=== PATIENT | female | born 1960 | race Caucasian/White ===

== ENCOUNTER 2017-02-25 19:32 | Inpatient (IN) | payer OTHER ==
[~2017-02-25] VITALS: Ht 165.1 cm; Wt 72.6 kg
[~2017-02-25 19:32] MED LIST: CARBAMAZEPINE300 M1 PO; CIPRO250 M1 PO; CITRACAL + D 311 TAB PO; FLAGYL500 MG PO; KEFLEX500 M1 PO; LEVETIRACETAM500 M2 PO; LEVSIN0.125 M1 PO; PHENOBARBITAL64.8 M1 PO; VITAMIN C500 M6 PO; ZOCOR40 M1 PO; ZOFRAN ODT4 M1 SL
[2017-02-25] MEDS ORDERED: LINZESS145 MC1 PO (20:40)
[2017-02-25] MEDS ORDERED: CITRACAL + D M1 EACH PO (20:41)
--- NOTE | 2017-02-25 21:01 | ED GI/GU/ABDOMINAL COMPLAINT ---
See Addendum History of Present Illness General Chief Complaint: Abdominal Pain/Flank Pain Stated Complaint: "N+V-D", ABD PAIN" Source: patient, family, old records Exam Limitations: no limitations Vital Signs & Intake/Output Vital Signs & Intake/Output Vital Signs Date Time Temp Pulse Resp B/P B/P Pulse O2 O2 Flow FiO2 Mean Ox Delivery Rate 02/25 2343 97.2 78 20 132/60 95 Room Air 02/25 1949 97.7 102 20 108/75 98 ED Intake and Output 02/26 0000 02/25 1200 Intake Total 2000 Output Total Balance 1999 Intake, IV 2000 Intake, Oral 0 Patient 161 lb Weight Allergies Coded Allergies: fexofenadine (Intermediate, PT FEELS NAUSEA, LOSES BALANCE, FEELS OUT OF MIND ) Reconcile Medications Calcium Citrate/Vitamin D3 (Citracal + D Maximum Caplet) (Unknown Strength) TABLET (Unknown Dose) PO DAILY SUPPLEMENT (Reported) Carbamazepine 300 MG CPMP.12HR 1 CAP PO BID SEIZURES (Reported) Ciprofloxacin HCl (Cipro) 250 MG TABLET 1 TAB PO BID ENTERITIS Hyoscyamine (Levsin) 0.125 MG TABLET 1 TAB PO Q4 PRN ABDOMINAL PAIN Levetiracetam 500 MG TABLET 2 TAB PO BID SEIZURES (Reported) Linaclotide (Linzess) 145 MCG CAPSULE 1 CAP PO DAILY GI (Reported) Metronidazole (Flagyl) 500 MG TABLET 1 TAB PO BID ENTERITIS Ondansetron (Zofran Odt) 4 MG TAB.RAPDIS 1 TAB SL TID PRN NAUSEA Phenobarbital 64.8 MG TABLET 1 TAB PO BID EPILEPSY (Reported) Simvastatin (Zocor*) 40 MG TABLET 1 TAB PO QPM CHOLESTEROL (Reported) Triage Note: "YOU WANT TO KNOW WHATS WRONG LOOK AT HER ;LAST VISIT" ENCOURAGED TO STATE REASON FOR VISIT. PT REPORTS FINISHED ANTIBIOTICS FOR COLITIS AND STARTED VOMITING AGAIN TODAY TOOK A LEVSIN AT 1530 WITHOUT EFFECT, ALREADY SAW DR ARAUJO AND HAD CT, JUST FIX ME" Triage Nurses Notes Reviewed? yes ? N Is pt currently ? No Onset: Afternoon Duration: day(s): (2-3) Timing: multiple episodes today Location: generalized abdomen Activities at Onset: FINISHED COURSE OF ABX Associated Symptoms: abdominal pain, nausea/vomiting HPI: This is a 57-year-old female presents to ER with her for chief complaint of abdominal pain, nausea and vomiting worse over the last 2 days. Patient was seen here on the and diagnosed with a segment of colitis. She was put on Cipro and Flagyl and was told to follow up with GI. She states that she had [address] Barroso but ended up seeing the nurse practitioner. The scheduled her for a colonoscopy on general return if 4. Patient states that after completion of the antibiotic she is felt worse in the past 24 days. Patient states that she is having diarrhea up to 3-4 episodes per day. She does feel bloated and distended. She is unable to keep any food down today. Past History Travel History Traveled to [place] past 21 day No Medical History Any Pertinent Medical History? 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 No Review of Systems Review of Systems Constitutional: Reports: malaise, weakness. Denies: chills, fever. EENTM: Reports: no symptoms. Respiratory: Denies: cough, short of breath. Cardiovascular: Denies: chest pain, palpitations. GI: Reports: abdominal pain, bloating, diarrhea, nausea, vomiting. Genitourinary: Reports: see HPI (DARK URINE). Denies: discharge, dysuria. Musculoskeletal: Reports: no symptoms. Skin: Reports: no symptoms. Neurological/Psychological: Reports: no symptoms. Hematologic/Endocrine: Denies: bruising, bleeding, polyuria, polydipsia. Immunologic/Allergic: Denies: splenectomy. All Other Systems: Reviewed and Negative Physical Exam Physical Exam General Appearance: well developed/nourished, alert, awake, mild distress Head: atraumatic, normal appearance Eyes: Bilateral: normal appearance, PERRL, EOMI. Ears, Nose, Throat, Mouth: hearing grossly normal, DRY MUCUS MEMBRANES Neck: normal inspection, supple, full range of motion Respiratory: normal breath sounds, chest non-tender, no respiratory distress Cardiovascular: regular rate/rhythm, normal peripheral pulses Peripheral Pulses: 2+ radial (R), 2+ radial (L) Gastrointestinal: normal bowel sounds, soft, tenderness (MILD LLQ), NO REBOUND/ GUARDING Extremities: normal range of motion Neurologic/Psych: no motor/sensory deficits, awake, alert, oriented x 3 Skin: intact, normal color, warm/dry Core Measures ACS in differential dx? No Sepsis Present: No Sepsis Focused Exam Completed? No Progress Differential Diagnosis: COLITIS, IBD, C.DIFF, DEHYDRATION, JIGNA Plan of Care: Orders Procedure Date/time Status Nothing by Mouth 02/26 B Active ED Holding Orders 02/26 39 Active Admit to inpatient 02/26 39 Active Vital Signs 02/26 39 Active Code Status 02/26 39 Active NGT 02/25 2347 Active EKG 02/25 2347 Active Add-on Test (ER Only) 02/25 2111 Active Add-on Test (ER Only) 02/25 2110 Active CULTURE,STOOL 02/25 2106 Active OVA AND PARASITE ANTIGENS 02/25 2106 Active C.DIFFICILE 02/25 2106 Active Add-on Test (ER Only) 02/25 2105 Active TEGRETOL LEVEL 02/25 2050 Complete PARTIAL THROMBOPLASTIN TIME 02/25 2050 Complete PROTHROMBIN TIME 02/25 2050 Complete LIPASE 02/25 2050 Complete C-REACTIVE PROTEIN 02/25 2050 Complete URINALYSIS 02/25 1950 Active COMPREHENSIVE METABOLIC PANEL 02/25 1950 Complete CBC WITHOUT DIFFERENTIAL 02/25 1950 Complete Current Medications Sig/Danny Start time Last Medication Dose Stop Time Status Admin Promethazine HCl 12.5 MG ONCE ONE 02/26 0045 UNVr (Phenergen) 02/26 0046 Laboratory Tests 02/26/17 0005: Urine Color Pending, Urine Clarity Pending, Urine pH Pending, Ur Specific [place] Pending, Urine Protein Pending, Urine Ketones Pending, Urine Nitrite Pending, Urine Bilirubin Pending, Urine Urobilinogen Pending, Ur Leukocyte Esterase Pending, Ur Microscopic Pending, Urine Hemoglobin Pending, Urine Glucose Pending 02/25/172049: Anion Gap 11, Estimated GFR > 60, BUN/Creatinine Ratio 30.0 H, Glucose 114 H, Calcium 9.3, Total Bilirubin 0.3, AST 21, ALT 32, Alkaline Phosphatase 84, C- Reactive Prot, Quant 1.6 H, Total Protein 6.9, Albumin 4.0, Globulin 2.9, Albumin/Globulin Ratio 1.4, Lipase 66, PT 11.1, INR 1.06, APTT 30, CBC w Diff NO MAN DIFF REQ, RBC 4.79, MCV 79.1 L, MCH 25.3 L, RDW 15.7 H, MPV 7.7, Gran % 78.6 H, Lymphocytes % 17.1 L, Monocytes % 3.6, Eosinophils % 0.4, Basophils % 0.3, Absolute Granulocytes 7.4 H, Absolute Lymphocytes 1.6, Absolute Monocytes 0.3, Absolute Eosinophils 0, Absolute Basophils 0, PUBS MCHC 32.0 L, Carbamazepine 3.5 L Microbiology 02/25 2106 STOOL: Cryptosporidium Antigen - ORD 02/25 2106 STOOL: Giardia Antigen (PATIENCE) - ORD 02/25 2106 STOOL: Clostridium difficile Toxin A & B - ORD 02/25 2106 STOOL: Stool Culture - ORD LABS, IV HYDRATION ORDERED. C.DIFF ORDERED. 10:21 PM PATIENT SLEEPING, RESTING COMFORTABLY. 2ND LITER INFUSING. 11:08 PM PATIENT VOMITING CLEAR WATER WITH CHUNKS OF FOOD. IV ZOFRAN, CT ABDOMNE ORDERED. 11:[address] SHOWS HIGH GRADE SBO, SURGERY PAGED. NGT ORDERED. 11:57 PM D/W DR GRIFFITHS. SURGICAL PA PAGED. 12:41 AM NG tube in place. Patient evaluated by surgical PA, admitted to the floor. Phenergan ordered. Diagnostic Imaging: Viewed by Me: CT Scan. Discussed w/RAD: CT Scan. Radiology Impression: PATIENT: RHODA MUNIZ PRESENT AGE: 57 PATIENT ACCOUNT NO: [id number] : 56 LOCATION: [facility] ORDERING PHYSICIAN: Ignacia Denton MD SERVICE DATE: 02/25/17 EXAM TYPE: CAT - CT ABD & PELVIS W IV CONTRAST EXAMINATION: CT ABDOMEN AND PELVIS WITH CONTRAST CLINICAL INFORMATION: Multiple episodes of vomiting. Abdominal pain. COMPARISON: CT scan pelvis 02/14/2017, 11/08/2016 TECHNIQUE: Multidetector volumetric imaging was performed of the abdomen and pelvis following IV administration of 95 mL of Optiray 320 intravenous contrast. Sagittal and coronal reformatted images were obtained on the technologist's workstation. DLP: 317.67 mGy-cm FINDINGS: LUNG BASES: The visualized lung bases are unremarkable. LIVER, GALLBLADDER, AND BILIARY TREE: The liver is normal in size, shape, and attenuation. No focal hepatic lesion or biliary ductal dilatation is present. Status post cholecystectomy. PANCREAS: Unremarkable. SPLEEN: Unremarkable. ADRENAL GLANDS: Unremarkable. KIDNEYS AND URETERS: The kidneys are normal in size, shape, and attenuation. No hydronephrosis, hydroureter, or calculi seen. No perinephric stranding. BLADDER: Unremarkable. GASTROINTESTINAL TRACT: There is a small bowel obstruction. Dilated small bowel loops with air-fluid levels to the terminal ileum. Transition point is at the terminal ileum/ileocecal valve. Coronal image 36. There is fluid in the colon but the colon is nondistended. No bowel wall thickening. No air in the bowel wall. At the ileocecal valve there is a lobular soft tissue density, axial image 58 (2). A mass at the ileocecal valve could be considered. No mesenteric mass. The appendix is not identified. MESENTERY: Small amount of free fluid in the abdomen but no free air or inflammation. The fluid could be due to the bowel obstruction. ABDOMINAL WALL: No significant hernia is appreciated. LYMPH NODES: Normal. VASCULAR: Unremarkable. PELVIC VISCERA: Unremarkable. OSSEOUS STRUCTURES: Unremarkable. IMPRESSION: High-grade small bowel obstruction with transition at the terminal ileum/ileocecal valve. This critical result was discussed with Dr. Denton on , 11:50 PM and it was ascertained that the content and urgency of the report was understood at the time of direct communication. DICTATED BY: Merrill Harper MD DATE/TIME DICTATED:02/25/172337 NIGHT SHIFT SUPERVISOR:SIMBA DATE/TIME TRANSCRIBED:02/25/172337 CONFIDENTIAL, DO NOT COPY WITHOUT APPROPRIATE AUTHORIZATION. <Electronically signed in Other Vendor System> SIGNED BY: Merrill Harper MD 02/25/17 6658 Initial ED EKG: none Departure Departure Time of Disposition: 12 Disposition: STILL A PATIENT Condition: Stable Clinical Impression Primary Impression: SBO (small bowel obstruction) Referrals: Stewart Chambers MD (PCP/Family) Departure Forms: Customer Survey General Discharge Information Admission Note Spoke With: Luis MAI,Samuel Mckeon Documentation of Exam: Documentation of any treatments & extenuating circumstances including Concerns Regarding Discharge (functional status, medication knowledge or non-compliance, living conditions, etc.) that warrant an admission rather than observation: [NGT , IV FLUIDS, MONITOR I/O, SERIAL ABDOMINAL EXAMINATIONS, GI CONSULTATION]
[2017-02-25 21:05] LABS: ABSOLUTE BASOPHIL COUNT 0 /CUMM (0.0-0.2); ABSOLUTE EOSINOPHIL COUNT 0 /CUMM (0.0-0.7); ABSOLUTE GRANULOCYTE CT 7.4 /CUMM (1.4-6.5); ABSOLUTE LYMPH COUNT 1.6 /CUMM (1.2-3.4); ABSOLUTE MONOCYTE COUNT 0.3 /CUMM (0.10-0.60); BASOPHIL % 0.3 % (0.0-2.0); EOSINOPHIL % 0.4 % (0-5); GRANULOCYTE % 78.6 % (42.2-75.2); HEMATOCRIT 37.9 % (37-47); MEAN CORPUSCULAR HGB 25.3 PG (27.0-31.0); MEAN CORPUSCULAR VOLUME 79.1 FL (81.0-99.0); MEAN PLATELET VOLUME 7.7 FL (7.4-10.4); PLATELET COUNT 429 /CUMM (130-400); RBC DISTRIBUTION WIDTH 15.7 % (11.5-14.5); RED BLOOD CELL CT 4.79 /CUMM (4.20-5.40); WHITE BLOOD CELL COUNT 9.5 /CUMM (4.8-10.8)
[2017-02-25 21:25] LABS: PT 11.1 SEC (9.4-12.5); PTT 30 SEC (25-37)
--- NOTE | 2017-02-25 23:52 | CT SCAN REPORT ---
EXAMINATION: CT ABDOMEN AND PELVIS WITH CONTRAST CLINICAL INFORMATION: Multiple episodes of vomiting. Abdominal pain. COMPARISON: CT scan pelvis 02/14/2017, 11/08/2016 TECHNIQUE: Multidetector volumetric imaging was performed of the abdomen and pelvis following IV administration of 95 mL of Optiray 320 intravenous contrast. Sagittal and coronal reformatted images were obtained on the technologist's workstation. DLP: 317.67 mGy-cm FINDINGS: LUNG BASES: The visualized lung bases are unremarkable. LIVER, GALLBLADDER, AND BILIARY TREE: The liver is normal in size, shape, and attenuation. No focal hepatic lesion or biliary ductal dilatation is present. Status post cholecystectomy. PANCREAS: Unremarkable. SPLEEN: Unremarkable. ADRENAL GLANDS: Unremarkable. KIDNEYS AND URETERS: The kidneys are normal in size, shape, and attenuation. No hydronephrosis, hydroureter, or calculi seen. No perinephric stranding. BLADDER: Unremarkable. GASTROINTESTINAL TRACT: There is a small bowel obstruction. Dilated small bowel loops with air-fluid levels to the terminal ileum. Transition point is at the terminal ileum/ileocecal valve. Coronal image 36. There is fluid in the colon but the colon is nondistended. No bowel wall thickening. No air in the bowel wall. At the ileocecal valve there is a lobular soft tissue density, axial image 58 (2). A mass at the ileocecal valve could be considered. No mesenteric mass. The appendix is not identified. MESENTERY: Small amount of free fluid in the abdomen but no free air or inflammation. The fluid could be due to the bowel obstruction. ABDOMINAL WALL: No significant hernia is appreciated. LYMPH NODES: Normal. VASCULAR: Unremarkable. PELVIC VISCERA: Unremarkable. OSSEOUS STRUCTURES: Unremarkable. IMPRESSION: High-grade small bowel obstruction with transition at the terminal ileum/ileocecal valve. This critical result was discussed with Dr. Denton on 02/25/2017, 11:50 PM and it was ascertained that the content and urgency of the report was understood at the time of direct communication.
--- NOTE | 2017-02-26 01:15 | Admission Core Measures ---
Acute Coronary Syndrome (CM) ACS Core Measures Acute Coronary Syndrome Diagnosis No Congestive Heart Failure (NEW) CHF Core Measures Congestive Heart Failure Diagnosis No Cerebrovascular Accident (NEW) CVA Core Measures CVA/TIA Diagnosis No Venous Thromboembolism VTE Core Martine (View Protocol) VTE Risk Factors Age>40 No Mechanical VTE Prophylaxis d/t N/A MechProphylax Ordered No VTE Pharm Prophylaxis d/t NA PharmProphylax ordered Problem List As ranked by this Provider includes Assessment & Plan 1. SBO (small bowel obstruction) 2. Epilepsy 3. History of section 4. S/P laparoscopic cholecystectomy 5. Hyperlipidemia HOME MEDS Home Med List Calcium Citrate/Vitamin D3 (Citracal + D Maximum Caplet) (Unknown Strength) TABLET (Unknown Dose) PO DAILY SUPPLEMENT (Reported) Carbamazepine 300 MG CPMP.12HR 1 CAP PO BID SEIZURES (Reported) Ciprofloxacin HCl (Cipro) 250 MG TABLET 1 TAB PO BID ENTERITIS Hyoscyamine (Levsin) 0.125 MG TABLET 1 TAB PO Q4 PRN ABDOMINAL PAIN Levetiracetam 500 MG TABLET 2 TAB PO BID SEIZURES (Reported) Linaclotide (Linzess) 145 MCG CAPSULE 1 CAP PO DAILY GI (Reported) Metronidazole (Flagyl) 500 MG TABLET 1 TAB PO BID ENTERITIS Ondansetron (Zofran Odt) 4 MG TAB.RAPDIS 1 TAB SL TID PRN NAUSEA Phenobarbital 64.8 MG TABLET 1 TAB PO BID EPILEPSY (Reported) Simvastatin (Zocor*) 40 MG TABLET 1 TAB PO QPM CHOLESTEROL (Reported)
--- NOTE | 2017-02-26 01:30 | History & Physical Pre-Op ---
Kusum BOWLINGGinger 02/26/17 0115: General Information and HPI MD Statement: I have seen and personally examined RHODA MUNIZ and documented this H&P. The patient is a 57 year old F who presented with a patient stated chief complaint of [ABDOMINAL PAIN]. Source of Information: patient, old records Exam Limitations: no limitations History of Present Illness: This 57 year old female with history of epilepsy, hyperlipidemia, hx lap marie for biliary colic, and , presents with intermittent obstructive symptoms since . She has had abdominal pain, bloating, and nausea/ vomiting at times. She was seen in the ED on 02/14/17, and sent home with 10 days of cipro/flagyl for "enteritis", but her symptoms have returned since completing this course of antibiotics just over a days ago. She currently reports generalized abdominal pain, with nausea and vomiting. She has also had 4 bms today. She reports a history of constipation-related IBS, but hasn't been taking Linzess because she has been having these obstructive symptoms, with episodes of diarrhea. She was planning an outpatient colonscopy for March 21 reportedly. She's on multiple seizure medications, but has't had a seizure since 1985. She was just recently started on keppra, to assist in weaning her off carbamazepine. An ng tube was placed in the ED, and with some irrigation, about 500 mls of nonbilious fluid is seen in the cannister, however she does not feel much better yet. Allergies/Medications Allergies: Coded Allergies: fexofenadine (Intermediate, PT FEELS NAUSEA, LOSES BALANCE, FEELS OUT OF MIND ) Home Med list Calcium Citrate/Vitamin D3 (Citracal + D Maximum Caplet) (Unknown Strength) TABLET (Unknown Dose) PO DAILY SUPPLEMENT (Reported) Carbamazepine 300 MG CPMP.12HR 1 CAP PO BID SEIZURES (Reported) Ciprofloxacin HCl (Cipro) 250 MG TABLET 1 TAB PO BID ENTERITIS Hyoscyamine (Levsin) 0.125 MG TABLET 1 TAB PO Q4 PRN ABDOMINAL PAIN Levetiracetam 500 MG TABLET 2 TAB PO BID SEIZURES (Reported) Linaclotide (Linzess) 145 MCG CAPSULE 1 CAP PO DAILY GI (Reported) Metronidazole (Flagyl) 500 MG TABLET 1 TAB PO BID ENTERITIS Ondansetron (Zofran Odt) 4 MG TAB.RAPDIS 1 TAB SL TID PRN NAUSEA Phenobarbital 64.8 MG TABLET 1 TAB PO BID EPILEPSY (Reported) Simvastatin (Zocor*) 40 MG TABLET 1 TAB PO QPM CHOLESTEROL (Reported) Past History Medical History Neurological: seizure Cardiovascular: hyperlipidemia Respiratory: NONE Gastrointestinal: constipation, irritable bowel syndrome, recent "enteritis" Hepatic: NONE Renal: NONE Musculoskeletal: NONE Psychiatric: NONE Endocrine: NONE Blood Disorders: NONE Cancer(s): NONE 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 FH: breast cancer Lung cancer Psychosocial History Primary Language: Hungarian Review of Systems Review of Systems: admits: abdominal pain, nausea/vomiting, bloating, leg cramps, weakness denies: fevers/chills/sweats, dizziness, shortness of breath, chest pains Exam & Diagnostic Data Last 24 Hrs of Vital Signs/I&O Vital Signs Date Time Temp Pulse Resp B/P B/P Pulse O2 O2 Flow FiO2 Mean Ox Delivery Rate 02/25 2343 97.2 78 20 132/60 95 Room Air 02/25 1949 97.7 102 20 108/75 98 Intake & Output 02/26 0800 02/26 0000 02/25 1600 Intake Total 2000 Output Total 50 Balance -50 2000 Intake, IV 2000 Intake, Oral 0 Output, 50 Gastric Drainage Patient 161 lb Weight Physical Exam: General - alert & oriented x 3. uncomfortable. no acute distress Skin - warm, dry, and smooth. no rashes noted. Lungs - clear bilaterally. no w/r/r. Cardiac - s1s2. reg. Abdomen - softly distended. generalized tenderness, without evidence of peritonitis. ng tube irrigated, with approximately 500 mls nonbilious fluid in cannister. Extremities - warm bilaterally. no c/c/e. calves soft and nontender b/l. Neuro - no focal deficits. no motor or sensory deficits. Last 24 Hrs of Labs/Uriel: Laboratory Tests 02/26/17 0005: Urine Color YEL, Urine Clarity CLEAR, Urine pH 6.0, Ur Specific [place] 1.015, Urine Protein NEG, Urine Ketones TRACE H, Urine Nitrite NEG, Urine Bilirubin NEG, Urine Urobilinogen 0.2, Ur Leukocyte Esterase NEG, Ur Microscopic SEDIMENT EXAMINED, Urine RBC 1-3, Urine WBC RARE, Ur Epithelial Cells RARE, Urine Mucus MANY H, Urine Hemoglobin TRACE-INTACT, Urine Glucose NEG 02/25/172049: Anion Gap 11, Estimated GFR > 60, BUN/Creatinine Ratio 30.0 H, Glucose 114 H, Calcium 9.3, Total Bilirubin 0.3, AST 21, ALT 32, Alkaline Phosphatase 84, C- Reactive Prot, Quant 1.6 H, Total Protein 6.9, Albumin 4.0, Globulin 2.9, Albumin/Globulin Ratio 1.4, Lipase 66, PT 11.1, INR 1.06, APTT 30, CBC w Diff NO MAN DIFF REQ, RBC 4.79, MCV 79.1 L, MCH 25.3 L, RDW 15.7 H, MPV 7.7, Gran % 78.6 H, Lymphocytes % 17.1 L, Monocytes % 3.6, Eosinophils % 0.4, Basophils % 0.3, Absolute Granulocytes 7.4 H, Absolute Lymphocytes 1.6, Absolute Monocytes 0.3, Absolute Eosinophils 0, Absolute Basophils 0, PUBS MCHC 32.0 L, Carbamazepine 3.5 L Microbiology 02/25 2106 STOOL: Cryptosporidium Antigen - ORD 02/25 2106 STOOL: Giardia Antigen (URIEL) - ORD 02/25 2106 STOOL: Clostridium difficile Toxin A & B - ORD 02/25 2106 STOOL: Stool Culture - ORD Diagnostic Data Other Results EXAM TYPE: CAT - CT ABD & PELVIS W IV CONTRAST EXAMINATION: CT ABDOMEN AND PELVIS WITH CONTRAST CLINICAL INFORMATION: Multiple episodes of vomiting. Abdominal pain. COMPARISON: CT scan pelvis 02/14/2017, 11/08/2016 TECHNIQUE: Multidetector volumetric imaging was performed of the abdomen and pelvis following IV administration of 95 mL of Optiray 320 intravenous contrast. Sagittal and coronal reformatted images were obtained on the technologist's workstation. DLP: 317.67 mGy-cm FINDINGS: LUNG BASES: The visualized lung bases are unremarkable. LIVER, GALLBLADDER, AND BILIARY TREE: The liver is normal in size, shape, and attenuation. No focal hepatic lesion or biliary ductal dilatation is present. Status post cholecystectomy. PANCREAS: Unremarkable. SPLEEN: Unremarkable. ADRENAL GLANDS: Unremarkable. KIDNEYS AND URETERS: The kidneys are normal in size, shape, and attenuation. No hydronephrosis, hydroureter, or calculi seen. No perinephric stranding. BLADDER: Unremarkable. GASTROINTESTINAL TRACT: There is a small bowel obstruction. Dilated small bowel loops with air-fluid levels to the terminal ileum. Transition point is at the terminal ileum/ileocecal valve. Coronal image 36. There is fluid in the colon but the colon is nondistended. No bowel wall thickening. No air in the bowel wall. At the ileocecal valve there is a lobular soft tissue density, axial image 58 (2). A mass at the ileocecal valve could be considered. No mesenteric mass. The appendix is not identified. MESENTERY: Small amount of free fluid in the abdomen but no free air or inflammation. The fluid could be due to the bowel obstruction. ABDOMINAL WALL: No significant hernia is appreciated. LYMPH NODES: Normal. VASCULAR: Unremarkable. PELVIC VISCERA: Unremarkable. OSSEOUS STRUCTURES: Unremarkable. IMPRESSION: High-grade small bowel obstruction with transition at the terminal ileum/ileocecal valve. This critical result was discussed with Dr. Denton on 02/25/2017, 11:50 PM and it was ascertained that the content and urgency of the report was understood at the time of direct communication. DICTATED BY: Merrill Harper MD DATE/TIME DICTATED:02/25/172337 DOCUMENT COORDINATOR:SIMBA DATE/TIME TRANSCRIBED:02/25/172337 Assessment/Plan Assessment/Plan: This 57 year old female with history of epilepsy, hyperlipidemia, hx IBS / constipation, with intermittent obstructive symptoms for about a month, here with recurrent abdominal pain secondary to high grade sbo npo / ngt / ivf pain medication as needed anti-emetics as needed seizure medications ordered (keppra and phenobarb available IV) serial exams and labs protonix - gi ppx hep sc - dvt ppx will d/w As Ranked By This Provider Problem List: 1. SBO (small bowel obstruction) 2. Epilepsy 3. Hyperlipidemia 4. S/P laparoscopic cholecystectomy 5. History of section Copies To: Reyes MAI,Stewart Smith MD,[facility] 02/26/17 1222: Attending Review Statement Attending Statement Attending Statement: examined this patient, discuss w/resident/PA/HEAD SCHOOL CUSTODIAN, discussed with family, reviewed images Attending Assessment/Plan: This patient is known to me from laparoscopic cholecystectomy last year. She now presents with progressive obstructive symptoms over the past three months, worse in the past few weeks. She was last seen 02/[address] showed ? inflammatory changes to terminal ileum(images viewed). She felt better for a week and now presents with worsened symptoms of abdominal pain, distension and vomiting. CT now shows intestinal obstruction due to inflammation or mass at terminal ileum. Not improved with NGT. Plan willl be to fluid rescucitate and proceed with laparoscopic exploration, possible bowel resection. Patient agreeable. Informed of risks of surgery including bleeding, infection, anastomotic leak requiring ileostomy and conversion to open.
[2017-02-26 02:23] VITALS: BP 136/64
[2017-02-26 06:34] VITALS: BP 130/60
--- NOTE | 2017-02-26 09:13 | PN- General Surgery ---
Subjective Subjective: Patient not feeling much better this morning, NG tube with less than 50 mL output overnight, just flushed again this morning by nursing staff 10 minutes prior to my evaluation. She vomited earlier, just received Zofran. Still in moderate pain. No flatus, no bowel movement Objective Vital Signs and I&Os Vital Signs Date Time Temp Pulse Resp B/P B/P Pulse O2 O2 Flow FiO2 Mean Ox Delivery Rate 02/26 0634 98.5 81 18 130/60 93 02/26 0223 97.8 85 18 136/64 95 02/26 0145 97.1 74 18 149/70 94 Room Air 02/25 2343 97.2 78 20 132/60 95 Room Air 02/25 1949 97.7 102 20 108/75 98 Intake & Output 02/26 1600 02/26 0800 02/26 0000 02/25 1600 02/25 0800 02/25 0000 Intake Total 700 2000 Output Total 450 Balance 250 2000 Intake, IV 700 2000 Intake, Oral 0 0 Number 0 Bowel Movements Output, 50 Gastric Drainage Output, Urine 400 Patient 160 lb 161 lb Weight Weight Standing Scale Measurement Method Physical Exam: Well-developed well-nourished appears uncomfortable, tearful HEENT: Atraumatic, extraocular motion intact NG tube in place, minimal output of bilious material, Neck: Supple, no lymphadenopathy Respiratory: No respiratory distress Abdomen: Moderate distention, soft, mild generalized abdominal tenderness, hypoactive bowel sounds Extremities: No edema, no calf pain Neuro: Alert and oriented x3 Psych: Tearful, normal memory normal judgment. Skin: Warm and dry, no rash on exposed skin Results Last 48 Hours of Labs: Laboratory Tests 02/26 02/26 0742 0005 Miscellaneous Ref Lab Test Result Pending Urines Urine Color (YEL,AMB,STR) YEL Urine Clarity (CLEAR) CLEAR Urine pH (5.0 - 8.0) 6.0 Ur Specific [place] (1.001 - 1.035) 1.015 Urine Protein (NEG,<30 MG/DL) NEG Urine Ketones (NEG) TRACE H Urine Nitrite (NEG) NEG Urine Bilirubin (NEG) NEG Urine Urobilinogen (0.1 - 1.0 EU/dl) 0.2 Ur Leukocyte Esterase (NEG) NEG Ur Microscopic SEDIMENT EXAMINED Urine RBC (0 - 5 /HPF) 1-3 Urine WBC (0 - 2 /HPF) RARE Ur Epithelial Cells (NONE,FEW) RARE Urine Mucus (FEW,NONE) MANY H Urine Hemoglobin (NEG) TRACE-INTACT Urine Glucose (N MG/DL) NEG 02/25 2050 Chemistry Sodium (137 - 145 mmol/L) 142 Potassium (3.5 - 5.1 mmol/L) 4.8 Chloride (98 - 107 mmol/L) 106 Carbon Dioxide (22 - 30 mmol/L) 25 Anion Gap (5 - 16) 11 BUN (7 - 17 mg/dL) 21 H Creatinine (0.5 - 1.0 mg/dL) 0.7 Estimated GFR (>60 ml/min) > 60 BUN/Creatinine Ratio (7 - 25 %) 30.0 H Glucose (65 - 99 mg/dL) 114 H Calcium (8.4 - 10.2 mg/dL) 9.3 Magnesium (1.6 - 2.3 mg/dL) 2.2 Total Bilirubin (0.2 - 1.3 mg/dL) 0.3 AST (14 - 36 U/L) 21 ALT (9 - 52 U/L) 32 Alkaline Phosphatase (<127 U/L) 84 C-Reactive Prot, Quant (<1.0 mg/dL) 1.6 H Total Protein (6.3 - 8.2 g/dL) 6.9 Albumin (3.5 - 5.0 g/dL) 4.0 Globulin (1.9 - 4.2 gm/dL) 2.9 Albumin/Globulin Ratio (1.1 - 2.2 %) 1.4 Lipase (23 - 300 U/L) 66 Coagulation PT (9.4 - 12.5 SEC) 11.1 INR (0.90 - 1.19) 1.06 APTT (25 - 37 SEC) 30 Hematology CBC w Diff NO MAN DIFF REQ WBC (4.8 - 10.8 /CUMM) 9.5 RBC (4.20 - 5.40 /CUMM) 4.79 Hgb (12.0 - 16.0 G/DL) 12.1 Hct (37 - 47 %) 37.9 MCV (81.0 - 99.0 FL) 79.1 L MCH (27.0 - 31.0 PG) 25.3 L RDW (11.5 - 14.5 %) 15.7 H Plt Count (130 - 400 /CUMM) 429 H MPV (7.4 - 10.4 FL) 7.7 Gran % (42.2 - 75.2 %) 78.6 H Lymphocytes % (20.5 - 51.1 %) 17.1 L Monocytes % (1.7 - 9.3 %) 3.6 Eosinophils % (0 - 5 %) 0.4 Basophils % (0.0 - 2.0 %) 0.3 Absolute Granulocytes (1.4 - 6.5 /CUMM) 7.4 H Absolute Lymphocytes (1.2 - 3.4 /CUMM) 1.6 Absolute Monocytes (0.10 - 0.60 /CUMM) 0.3 Absolute Eosinophils (0.0 - 0.7 /CUMM) 0 Absolute Basophils (0.0 - 0.2 /CUMM) 0 PUBS MCHC (33.0 - 37.0 G/DL) 32.0 L Toxicology Carbamazepine (4.0 - 12.0 ug/mL) 3.5 L Assessment/Plan Assessment/Plan Hospital day #1 for admission secondary to high-grade small bowel obstruction IV antiemetics Continue NG tube to suction, monitor output Check abdominal x-ray this morning Follow-up am labs IV fluids Nothing by mouth Seizure movements Will discuss with Dr. Smith Core Measures Venous Thromboembolism VTE Risk Factors Age>40 No Mechanical VTE Prophylaxis d/t N/A MechProphylax Ordered No VTE Pharm Prophylaxis d/t NA PharmProphylax ordered
[2017-02-26 14:15] VITALS: BP 127/82
[2017-02-26 15:07] VITALS: BP 127/82
--- NOTE | 2017-02-26 16:38 | RADIOLOGY REPORT ---
EXAMINATION: XR ABDOMEN MULTIPLE VIEWS CLINICAL INDICATION: Small bowel obstruction COMPARISON: 02/25/2017 CT scan TECHNIQUE: Supine and upright views of the abdomen. FINDINGS: There are air-filled dilated small bowel loops with maximum transverse diameter of 3.5 cm. No abnormal small bowel wall thickening or pneumatosis seen. The loops of colon are not dilated. There is an enteric tube in place, with its tip and sidehole located in the left upper quadrant of the abdomen, in the expected position of the stomach. No free intra-abdominal air. Right upper quadrant surgical heather, represent prior cholecystectomy. There is excreted contrast within the urinary bladder, from prior contrast administration for CT scan. Pelvic phleboliths are present. IMPRESSION: Dilated small bowel loops, correlate with the diagnosis of small bowel obstruction.
--- NOTE | 2017-02-26 18:14 | Operative Report ---
Operative/Inv Procedure Report Surgery Date: 02/26/17 Name of Procedure: 1. Laparoscopic right colectomy 2. Umbilical hernia repair Pre-Operative Diagnosis: 1. Intestinal obstruction 2. Umbilical hernia Post-Operative Diagnosis: Same same Estimated Blood Loss: less than 50ml Surgeon/Welding Machine Operator Resistance: Luis MAI,Samuel Mckeon/Braeden BOWLING Anesthesia: general endotracheal tube Specimens: Right colon Operative Indication: 57-year-old woman with progressive obstructive symptoms. She is found on serial CT scan to have concern for a inflammatory or mass lesion in the terminal ileum. She now presents with complete intestinal obstruction for exploration. Operative/Procedure Note Note: After consent she is brought to the operating room and laid supine. Gen. anesthesia was obtained and her abdomen was prepped and draped. The skin around the umbilicus was after local anesthesia and a curvilinear incision made sharply. There was an umbilical hernia which was circumferentially dissected and the stalk transected with cautery. We thus exposed the fascial defect which was circumferentially dissected with cautery. The fascial edges were incised and contents reduced. Stay sutures were placed and a blunt Montgomery port was placed. Pneumoperitoneum was achieved. A 5 mm port was placed in the suprapubic region, a 3-5 mm ports was placed in the left mid abdomen and a 12 mm ports placed in the epigastric region. The abdomen was explored. There was diffuse dilatation of the small bowel up to the terminal ileum. In the terminal ileum there was an inflammatory masslike lesion kinking the bowel. It involved the cecum as well. I elected to perform right colectomy colectomy. We reflected the omentum and small bowel superiorly and to the left side respectively. There is right colic artery was identified and peritoneum overlying it was incised with cautery, delineating the line of resection from distal ileum to right transverse colon. Circumferentially dissected the right colic artery at its origin with blunt dissection. Retroperitoneal planes were then developed. Once we had identified this pedicle it was ligated with the LigaSure device. We then created a retroperitoneal planes up to the hepatic flexure and cecum. I divided the small bowel mesentery with LigaSure device and then transected the ileum with Endo OWEN 60 stapler. We then mobilized the right colon along the white line of [place] with cautery and took down the hepatic flexure with the LigaSure device. Divided the mesentery up to the site of transection of the transverse colon. At this point minilaparotomy was created through the epigastric port site. The Aneesh wound retractor was placed. Bowel was brought up through the wound and transverse colon divided with a OWEN 80 stapler. The specimen was passed off the field. [id number] anastomosis was then created by lining up the ileum to the right colon was sutures and then creating a [id number]-[id number] anastomosis with the OWEN stapler. The common enterotomy was closed with a reload. The anastomosis was dropped back in the perineal cavity and the Aneesh retractor removed. The fascia was closed with 0 Maxon suture. Regained pneumoperitoneum and inspected the anastomosis. Unfortunately there was a twist in the small bowel. I elected to redo the anastomosis. The fascia was opened up and bowel brought up through it. Anastomosis was resected with staplers and passed off the field. We then re-lined up the bowel in its proper position and created another [id number]-wc-[id number] anastomosis in a similar fashion. Was then dropped back in fascia closed and pneumoperitoneum achieved. This time the anastomosis can correct position. Hemostasis was adequate. We then removed. The umbilical hernia site was closed with running 0 Vicryl suture. Skin incisions closed with heather. Sterile dressings were applied. Sponge and needle counts are correct Findings: Obstructing mass at the ileocecal valve CC: Dharmesh MAI,Félix Kern; Reyes MAI,Stewart
[2017-02-26 20:00] VITALS: BP 130/80
--- NOTE | 2017-02-26 21:15 | PN- General Surgery ---
Subjective Subjective: Postop check: Patient awake and alert, she is tired but otherwise feeling well, pain is controlled, no nausea no vomiting Objective Vital Signs and I&Os Vital Signs Date Time Temp Pulse Resp B/P B/P Pulse O2 O2 Flow FiO2 Mean Ox Delivery Rate 02/27 2000 Nasal 3.0L Cannula 02/27 2000 99.5 63 18 130/80 95 Nasal 3.0L Cannula 02/26 1507 97.9 81 18 127/82 95 02/26 1415 97.9 81 18 127/82 95 Room Air Room Air 02/26 0634 98.5 81 18 130/60 93 02/26 0223 97.8 85 18 136/64 95 02/26 0145 97.1 74 18 149/70 94 Room Air 02/25 2343 97.2 78 20 132/60 95 Room Air Intake & Output 02/26 1600 02/26 0800 02/26 0000 02/25 1600 02/25 0800 02/25 0000 Intake Total 084 350 6864 Output Total 800 450 Balance 30 250 2000 Intake, IV 104 222 2111 Intake, Oral 30 0 0 Number 0 Bowel Movements Output, 350 50 Gastric Drainage Output, Urine 450 400 Patient 160 lb 161 lb Weight Weight Standing Scale Measurement Method Physical Exam: Well-developed well-nourished no apparent distress. Mildly pale appearing HEENT: Atraumatic, extraocular motion intact NG tube remains in place, Neck: Supple, no lymphadenopathy Respiratory: No respiratory distress Abdomen: Appropriate tenderness midline and right lower quadrant. Dressings clean dry and intact Extremities: No edema, no calf pain Neuro: Alert and oriented x3 Psych: Mood affect normal, normal memory normal judgment. Skin: Warm and dry, no rash on exposed skin Assessment/Plan Assessment/Plan Postop day #0 status post laparoscopic right hemicolectomy and umbilical hernia repair Nothing by mouth, NG tube, IV fluids (except for phenobarbitol liquid po) Follow a.m. labs. Pain medication as needed. Is and Os Heparin subcutaneous for DVT prophylaxis IV protonix follow path report home meds/anti seizure meds Out of bed tomorrow Monitor for return of bowel function Core Measures Venous Thromboembolism VTE Risk Factors Age>40 No Mechanical VTE Prophylaxis d/t N/A MechProphylax Ordered No VTE Pharm Prophylaxis d/t NA PharmProphylax ordered
[2017-02-26 22:10] VITALS: BP 126/64
[2017-02-26 22:44] LABS: ABSOLUTE BASOPHIL COUNT 0 /CUMM (0.0-0.2); ABSOLUTE EOSINOPHIL COUNT 0 /CUMM (0.0-0.7); ABSOLUTE GRANULOCYTE CT 12.7 /CUMM (1.4-6.5); ABSOLUTE LYMPH COUNT 0.7 /CUMM (1.2-3.4); ABSOLUTE MONOCYTE COUNT 0.3 /CUMM (0.10-0.60); BASOPHIL % 0.1 % (0.0-2.0); EOSINOPHIL % 0 % (0-5); MEAN CORPUSCULAR HGB 25.1 PG (27.0-31.0); MEAN CORPUSCULAR HGB CONC 31.7 G/DL (33.0-37.0); MEAN CORPUSCULAR VOLUME 79.3 FL (81.0-99.0); MEAN PLATELET VOLUME 8.5 FL (7.4-10.4); PLATELET COUNT 312 /CUMM (130-400); RBC DISTRIBUTION WIDTH 15.3 % (11.5-14.5); RED BLOOD CELL CT 3.71 /CUMM (4.20-5.40); WHITE BLOOD CELL COUNT 13.8 /CUMM (4.8-10.8)
[2017-02-26 22:51] LABS: HEMATOCRIT 29.4 % (37-47)
[2017-02-26 23:07] LABS: GRANULOCYTE % 92.3 % (42.2-75.2)
[2017-02-27 07:03] VITALS: BP 118/70
--- NOTE | 2017-02-27 08:31 | PN- General Surgery ---
See Addendum Subjective Subjective: in pain- refusing narcotics. difficulty taking deep breaths. Denies n/v/cp. no flatus/bm. dubon out, +spont void. oob in chair. Objective Vital Signs and I&Os Vital Signs Date Time Temp Pulse Resp B/P B/P Pulse O2 O2 Flow FiO2 Mean Ox Delivery Rate 02/27 0703 98.2 72 20 118/70 98 Nasal 2.0L Cannula 02/27 0000 98 Nasal 2.0L Cannula 02/26 2210 98.2 63 20 126/64 97 Nasal 3.0L Cannula 02/27 2000 Nasal 3.0L Cannula 02/27 2000 99.5 63 18 130/80 95 Nasal 3.0L Cannula 02/26 1507 97.9 81 18 127/82 95 02/26 1415 97.9 81 18 127/82 95 Room Air Room Air Intake & Output 02/27 1600 02/27 0800 02/27 0000 02/26 1600 02/26 0800 02/26 0000 Intake Total 800 769 416 8566 Output Total 200 1000 800 450 Balance 600 -1000 30 250 2000 Intake, IV 800 946 526 9959 Intake, Oral 30 0 0 Number 0 Bowel Movements Output, 350 50 Gastric Drainage Output, Urine 200 1000 450 400 Patient 160 lb 161 lb Weight Weight Standing Scale Measurement Method NGT: ?100cc over 12 hrs, flushed, patent VOID: 700cc this am after dubon dc'ed Physical Exam: gen- visibly uncomfortable card- s1s2 rrr pulm- ctab, poor inspiratory effort abd- ttp, incisions w cdi dressings, +bs w ngt clamped ext- calves soft nt, alps on Results Last 48 Hours of Labs: Laboratory Tests 02/27 02/26 02/26 0745 2159 0783 Chemistry Sodium (137 - 145 mmol/L) Pending 141 Potassium (3.5 - 5.1 mmol/L) Pending 4.0 Chloride (98 - 107 mmol/L) Pending 108 H Carbon Dioxide (22 - 30 mmol/L) Pending 25 Anion Gap (5 - 16) Pending 8 BUN (7 - 17 mg/dL) Pending 12 Creatinine (0.5 - 1.0 mg/dL) Pending 0.6 Estimated GFR (>60 ml/min) > 60 BUN/Creatinine Ratio (7 - 25 %) Pending 20.0 Glucose (65 - 99 mg/dL) 107 H Calcium Pending Phosphorus Pending Magnesium (1.6 - 2.3 mg/dL) Pending 2.0 Hematology CBC w Diff Pending NO MAN DIFF REQ WBC (4.8 - 10.8 /CUMM) Pending 13.8 H RBC (4.20 - 5.40 /CUMM) Pending 3.71 L Hgb (12.0 - 16.0 G/DL) Pending 9.3 L Hct (37 - 47 %) Pending 29.4 L MCV (81.0 - 99.0 FL) Pending 79.3 L MCH (27.0 - 31.0 PG) Pending 25.1 L RDW (11.5 - 14.5 %) Pending 15.3 H Plt Count (130 - 400 /CUMM) Pending 312 MPV (7.4 - 10.4 FL) Pending 8.5 Gran % (42.2 - 75.2 %) 92.3 H Lymphocytes % (20.5 - 51.1 %) 5.3 L Monocytes % (1.7 - 9.3 %) 2.3 Eosinophils % (0 - 5 %) 0 Basophils % (0.0 - 2.0 %) 0.1 Absolute Granulocytes (1.4 - 6.5 /CUMM) 12.7 H Absolute Lymphocytes (1.2 - 3.4 /CUMM) 0.7 L Absolute Monocytes (0.10 - 0.60 /CUMM) 0.3 Absolute Eosinophils (0.0 - 0.7 /CUMM) 0 Absolute Basophils (0.0 - 0.2 /CUMM) 0 PUBS MCHC (33.0 - 37.0 G/DL) Pending 31.7 L Miscellaneous Ref Lab Test Result (()) REPORT 02/26 Chemistry Sodium (137 - 145 mmol/L) 142 Potassium (3.5 - 5.1 mmol/L) 4.8 Chloride (98 - 107 mmol/L) 106 Carbon Dioxide (22 - 30 mmol/L) 25 Anion Gap (5 - 16) 11 BUN (7 - 17 mg/dL) 21 H Creatinine (0.5 - 1.0 mg/dL) 0.7 Estimated GFR (>60 ml/min) > 60 BUN/Creatinine Ratio (7 - 25 %) 30.0 H Glucose (65 - 99 mg/dL) 114 H Calcium (8.4 - 10.2 mg/dL) 9.3 Magnesium (1.6 - 2.3 mg/dL) 2.2 Total Bilirubin (0.2 - 1.3 mg/dL) 0.3 AST (14 - 36 U/L) 21 ALT (9 - 52 U/L) 32 Alkaline Phosphatase (<127 U/L) 84 C-Reactive Prot, Quant (<1.0 mg/dL) 1.6 H Total Protein (6.3 - 8.2 g/dL) 6.9 Albumin (3.5 - 5.0 g/dL) 4.0 Globulin (1.9 - 4.2 gm/dL) 2.9 Albumin/Globulin Ratio (1.1 - 2.2 %) 1.4 Lipase (23 - 300 U/L) 66 Coagulation PT (9.4 - 12.5 SEC) 11.1 INR (0.90 - 1.19) 1.06 APTT (25 - 37 SEC) 30 Hematology CBC w Diff NO MAN DIFF REQ WBC (4.8 - 10.8 /CUMM) 9.5 RBC (4.20 - 5.40 /CUMM) 4.79 Hgb (12.0 - 16.0 G/DL) 12.1 Hct (37 - 47 %) 37.9 MCV (81.0 - 99.0 FL) 79.1 L MCH (27.0 - 31.0 PG) 25.3 L RDW (11.5 - 14.5 %) 15.7 H Plt Count (130 - 400 /CUMM) 429 H MPV (7.4 - 10.4 FL) 7.7 Gran % (42.2 - 75.2 %) 78.6 H Lymphocytes % (20.5 - 51.1 %) 17.1 L Monocytes % (1.7 - 9.3 %) 3.6 Eosinophils % (0 - 5 %) 0.4 Basophils % (0.0 - 2.0 %) 0.3 Absolute Granulocytes (1.4 - 6.5 /CUMM) 7.4 H Absolute Lymphocytes (1.2 - 3.4 /CUMM) 1.6 Absolute Monocytes (0.10 - 0.60 /CUMM) 0.3 Absolute Eosinophils (0.0 - 0.7 /CUMM) 0 Absolute Basophils (0.0 - 0.2 /CUMM) 0 PUBS MCHC (33.0 - 37.0 G/DL) 32.0 L Toxicology Carbamazepine (4.0 - 12.0 ug/mL) 3.5 L Urines Urine Color (YEL,AMB,STR) YEL Urine Clarity (CLEAR) CLEAR Urine pH (5.0 - 8.0) 6.0 Ur Specific [place] (1.001 - 1.035) 1.015 Urine Protein (NEG,<30 MG/DL) NEG Urine Ketones (NEG) TRACE H Urine Nitrite (NEG) NEG Urine Bilirubin (NEG) NEG Urine Urobilinogen (0.1 - 1.0 EU/dl) 0.2 Ur Leukocyte Esterase (NEG) NEG Ur Microscopic SEDIMENT EXAMINED Urine RBC (0 - 5 /HPF) 1-3 Urine WBC (0 - 2 /HPF) RARE Ur Epithelial Cells (NONE,FEW) RARE Urine Mucus (FEW,NONE) MANY H Urine Hemoglobin (NEG) TRACE-INTACT Urine Glucose (N MG/DL) NEG Assessment/Plan Assessment/Plan A- POD1 sp lap R colectomy for obstruction lesion, with uncontrolled postop pain , awaitn return bowel fxn. P- -I&Os. -NPO, NGT, IVF -labs pending -cont iv tylenol, add iv toradol. low does IV ativan. keep IV morphine ordered - discussed benefits of use w pt, though pt wishes to avoid narcotics at this time. -titrate o2 -hep sq, alps, oob, ambulate -await path report - will dw attending Core Measures Venous Thromboembolism VTE Risk Factors Age>40 No Mechanical VTE Prophylaxis d/t N/A MechProphylax Ordered No VTE Pharm Prophylaxis d/t NA PharmProphylax ordered
[2017-02-27 08:43] LABS: ABSOLUTE BASOPHIL COUNT 0 /CUMM (0.0-0.2); ABSOLUTE EOSINOPHIL COUNT 0 /CUMM (0.0-0.7); ABSOLUTE LYMPH COUNT 1.8 /CUMM (1.2-3.4); ABSOLUTE MONOCYTE COUNT 0.5 /CUMM (0.10-0.60); BASOPHIL % 0.3 % (0.0-2.0); EOSINOPHIL % 0 % (0-5); GRANULOCYTE % 75.3 % (42.2-75.2); HEMATOCRIT 27.4 % (37-47); MEAN CORPUSCULAR HGB 25.7 PG (27.0-31.0); MEAN CORPUSCULAR HGB CONC 32.3 G/DL (33.0-37.0); MEAN CORPUSCULAR VOLUME 79.7 FL (81.0-99.0); MEAN PLATELET VOLUME 8.2 FL (7.4-10.4); PLATELET COUNT 334 /CUMM (130-400); RBC DISTRIBUTION WIDTH 15.8 % (11.5-14.5); RED BLOOD CELL CT 3.44 /CUMM (4.20-5.40); WHITE BLOOD CELL COUNT 9.4 /CUMM (4.8-10.8)
[2017-02-27 15:00] VITALS: BP 132/66
[2017-02-27 22:50] VITALS: BP 128/57
[2017-02-28 07:37] VITALS: BP 142/74
[2017-02-28 08:53] LABS: ABSOLUTE BASOPHIL COUNT 0 /CUMM (0.0-0.2); ABSOLUTE EOSINOPHIL COUNT 0 /CUMM (0.0-0.7); ABSOLUTE GRANULOCYTE CT 4.5 /CUMM (1.4-6.5); ABSOLUTE LYMPH COUNT 1.8 /CUMM (1.2-3.4); ABSOLUTE MONOCYTE COUNT 0.4 /CUMM (0.10-0.60); BASOPHIL % 0.5 % (0.0-2.0); EOSINOPHIL % 0 % (0-5); GRANULOCYTE % 67.3 % (42.2-75.2); HEMATOCRIT 26.2 % (37-47); MEAN CORPUSCULAR HGB 25.7 PG (27.0-31.0); MEAN CORPUSCULAR HGB CONC 32.4 G/DL (33.0-37.0); MEAN CORPUSCULAR VOLUME 79.3 FL (81.0-99.0); MEAN PLATELET VOLUME 8.9 FL (7.4-10.4); PLATELET COUNT 297 /CUMM (130-400); RBC DISTRIBUTION WIDTH 16.2 % (11.5-14.5); RED BLOOD CELL CT 3.31 /CUMM (4.20-5.40); WHITE BLOOD CELL COUNT 6.8 /CUMM (4.8-10.8)
--- NOTE | 2017-02-28 09:40 | PN- General Surgery ---
See Addendum Subjective Subjective: pod#2 s/p lap assist right colectomy no major issues overnight c/o ngt irritation denies cp, sob ambulating to bathroom, voiding Objective Vital Signs and I&Os Vital Signs Date Time Temp Pulse Resp B/P B/P Pulse O2 O2 Flow FiO2 Mean Ox Delivery Rate 02/28 0737 98.2 75 20 142/74 98 Room Air 02/28 0000 Room Air 02/27 2250 98.4 75 18 128/57 94 Room Air 02/27 1535 Room Air 02/27 1500 98.1 86 22 132/66 98 Room Air Intake & Output 02/28 1600 02/28 0800 02/28 0000 02/27 1600 02/27 0800 02/27 0000 Intake Total 800 700 830 800 Output Total 0341 171 9709 200 1000 Balance -910 0 -270 600 -1000 Intake, IV 800 700 800 800 Intake, Oral 0 30 Output, 110 100 100 Gastric Drainage Output, Urine 0780 078 4245 200 1000 Physical Exam: cv: rrr lungs; clear abd: soft, hypoactive bs softly distended dry bloody midline drsg no guarding to palp Assessment/Plan Assessment/Plan s/p lap assist right colectomy advanceing as expected plan oob/ambulate cont current regime will discuss with attending. f/u am labs Core Measures Venous Thromboembolism VTE Risk Factors Age>40 No Mechanical VTE Prophylaxis d/t N/A MechProphylax Ordered No VTE Pharm Prophylaxis d/t NA PharmProphylax ordered
[2017-02-28 15:32] VITALS: BP 120/76
[2017-02-28 22:51] VITALS: BP 124/78
[2017-03-01 07:15] VITALS: BP 120/64
--- NOTE | 2017-03-01 07:37 | PN- General Surgery ---
See Addendum Subjective Subjective: Patient states her abdominal pain is well controlled. She reports passing flatus and tolerating a clear liquid diet w/o nausea or vomiting. She denies moving her bowels and reports she is oob to chair and ambulating in the halls without difficulty. Objective Vital Signs and I&Os Vital Signs Date Time Temp Pulse Resp B/P B/P Pulse O2 O2 Flow FiO2 Mean Ox Delivery Rate 03/01 0715 98.5 70 20 120/64 94 02/28 2251 98.1 81 20 124/78 94 Room Air 02/28 1532 98.3 83 20 120/76 97 Room Air 02/28 0737 98.2 75 20 142/74 98 Room Air Intake & Output 03/01 0803/01 0000 02/28 1600 02/28 0802/28 0000 02/27 1600 Intake Total 1210 1620 980 800 700 830 Output Total 0634 228 2850 700 1100 Balance 1210 220 55 -910 0 -270 Intake, IV 730 900 800 800 700 800 Intake, Oral 480 720 180 0 30 Number 0 0 Bowel Movements Output, 25 110 100 100 Gastric Drainage Output, Urine 8491 877 4635 600 1000 Physical Exam: Gen: Awake an alert resting comfortably accompained by her Cardiac: S1S2 noted, RRR Lungs: Good air entry, CTAB Abd: Soft, mildly distended, faint bowel sounds. [address] and taken down, incisions closed with heather healing well with no signs of infection, left open to air. Slightly tympanic. Appropriately tender, no rebound or guarding noted. Ext: Alps in place, no edema or calf tenderness B/L Current Medications: Current Medications Sig/Danny Start time Last Medication Dose Route Stop Time Status Admin Acetaminophen 1,000 MG Q6P PRN 02/26 0115 AC 03/01 N/A 1 UNIT IV 0254 Carbamazepine 150 MG Q6H 02/27 0230 AC 03/01 PO 0246 Dextrose/Sodium 1,000 ML Q10H 02/26 0115 AC 02/28 Chloride IV 202 Heparin Sodium 5,000 UNIT Q8 02/26 0600 AC 03/01 (Porcine) SC 0545 Ketorolac 15 MG Q8H 02/27 1600 AC 03/01 Tromethamine IV 0034 Levetiracetam 1,000 MG Q12 02/26 1000 AC 02/28 N/A 1 UNIT IV 2125 Lorazepam 0.5 MG Q6-PRN PRN 02/27 0830 AC 02/27 IV 0846 Metoclopramide HCl 10 MG Q6P PRN 02/26 0915 AC IV Morphine Sulfate 2 MG Q3P PRN 02/27 0815 AC IV Morphine Sulfate 4 MG Q3P PRN 02/27 0815 AC IV Ondansetron HCl 4 MG Q6P PRN 02/26 0115 AC 02/26 IV 0832 Pantoprazole Sodium 40 MG DAILY 02/26 1000 AC 02/28 IV 0931 Phenobarbital 64.8 MG BID 02/26 2200 AC 02/28 PO 2125 Phenol 2 SPRAY Q2P PRN 02/26 0115 AC EXT Potassium Chloride 10 MEQ Q1H 02/28 0945 DC 02/28 IV 02/28 1046 1227 Results Last 48 Hours of Labs: Laboratory Tests 02/28 02/27 0812 0910 Chemistry Sodium (137 - 145 mmol/L) 138 138 Potassium (3.5 - 5.1 mmol/L) 3.4 L 3.6 Chloride (98 - 107 mmol/L) 105 106 Carbon Dioxide (22 - 30 mmol/L) 27 24 Anion Gap (5 - 16) 6 7 BUN (7 - 17 mg/dL) 5 L 5 L Creatinine (0.5 - 1.0 mg/dL) 0.6 0.5 Estimated GFR (>60 ml/min) > 60 > 60 BUN/Creatinine Ratio (7 - 25 %) 8.3 10.0 Calcium (8.4 - 10.2 mg/dL) 7.9 L Phosphorus (2.5 - 4.5 mg/dL) 2.5 Magnesium (1.6 - 2.3 mg/dL) 1.9 1.8 Hematology CBC w Diff NO MAN DIFF REQ WBC (4.8 - 10.8 /CUMM) 6.8 RBC (4.20 - 5.40 /CUMM) 3.31 L Hgb (12.0 - 16.0 G/DL) 8.5 L Hct (37 - 47 %) 26.2 L MCV (81.0 - 99.0 FL) 79.3 L MCH (27.0 - 31.0 PG) 25.7 L RDW (11.5 - 14.5 %) 16.2 H Plt Count (130 - 400 /CUMM) 297 MPV (7.4 - 10.4 FL) 8.9 Gran % (42.2 - 75.2 %) 67.3 Lymphocytes % (20.5 - 51.1 %) 25.9 Monocytes % (1.7 - 9.3 %) 6.3 Eosinophils % (0 - 5 %) 0 Basophils % (0.0 - 2.0 %) 0.5 Absolute Granulocytes (1.4 - 6.5 /CUMM) 4.5 Absolute Lymphocytes (1.2 - 3.4 /CUMM) 1.8 Absolute Monocytes (0.10 - 0.60 /CUMM) 0.4 Absolute Eosinophils (0.0 - 0.7 /CUMM) 0 Absolute Basophils (0.0 - 0.2 /CUMM) 0 PUBS MCHC (33.0 - 37.0 G/DL) 32.4 L 02/27 0745 Hematology CBC w Diff NO MAN DIFF REQ WBC (4.8 - 10.8 /CUMM) 9.4 RBC (4.20 - 5.40 /CUMM) 3.44 L Hgb (12.0 - 16.0 G/DL) 8.8 L Hct (37 - 47 %) 27.4 L MCV (81.0 - 99.0 FL) 79.7 L MCH (27.0 - 31.0 PG) 25.7 L RDW (11.5 - 14.5 %) 15.8 H Plt Count (130 - 400 /CUMM) 334 MPV (7.4 - 10.4 FL) 8.2 Gran % (42.2 - 75.2 %) 75.3 H Lymphocytes % (20.5 - 51.1 %) 18.9 L Monocytes % (1.7 - 9.3 %) 5.5 Eosinophils % (0 - 5 %) 0 Basophils % (0.0 - 2.0 %) 0.3 Absolute Granulocytes (1.4 - 6.5 /CUMM) 7.0 H Absolute Lymphocytes (1.2 - 3.4 /CUMM) 1.8 Absolute Monocytes (0.10 - 0.60 /CUMM) 0.5 Absolute Eosinophils (0.0 - 0.7 /CUMM) 0 Absolute Basophils (0.0 - 0.2 /CUMM) 0 PUBS MCHC (33.0 - 37.0 G/DL) 32.3 L Assessment/Plan Assessment/Plan This is a 57 year-old female w/ a history of epilepsy admitted with high grade SBO, now POD 3 s/p laparoscopic right hemicolectomy and umbilical hernia repair secondary to obstruction lesion at ileocecal valve with slow return of bowel function Cont clears D/c IVF once adequate oral intake Cont pain regimen GI/DVT ppx on board Home meds on board Encourage IS Encourage ambulation F/u path Will d/w Dr. Smith Core Measures Venous Thromboembolism VTE Risk Factors Age>40 No Mechanical VTE Prophylaxis d/t N/A MechProphylax Ordered No VTE Pharm Prophylaxis d/t NA PharmProphylax ordered
[2017-03-01 09:04] LABS: ABSOLUTE BASOPHIL COUNT 0 /CUMM (0.0-0.2); ABSOLUTE EOSINOPHIL COUNT 0 /CUMM (0.0-0.7); ABSOLUTE GRANULOCYTE CT 4.1 /CUMM (1.4-6.5); ABSOLUTE LYMPH COUNT 1.6 /CUMM (1.2-3.4); ABSOLUTE MONOCYTE COUNT 0.3 /CUMM (0.10-0.60); BASOPHIL % 0.2 % (0.0-2.0); EOSINOPHIL % 0.2 % (0-5); GRANULOCYTE % 68.2 % (42.2-75.2); HEMATOCRIT 24.6 % (37-47); MEAN CORPUSCULAR HGB 26.1 PG (27.0-31.0); MEAN PLATELET VOLUME 8.5 FL (7.4-10.4); PLATELET COUNT 348 /CUMM (130-400); RBC DISTRIBUTION WIDTH 16.2 % (11.5-14.5); RED BLOOD CELL CT 3.11 /CUMM (4.20-5.40)
--- NOTE | 2017-03-01 11:13 | Patient Discharge Instructions ---
Discharge Instructions General Discharge Information You were seen/treated for: 1. Small bowel obstruction due to mass at terminal ileum 2. Umbilical hernia You had these procedures: On 02/26/17, 1. Laparoscopic right colectomy 2. Umbilical hernia Watch for these problems: Increased abdominal pain, distention, fever > 101.3 F, chills, nausea, vomiting, inability to pass gas/move your bowels Call Surgeon to remove: Jeanie (IN 1 WEEK) Do not soak the wound: Yes No bath, but you may shower: Yes Other wound care: Keep incisions clean an dry May apply dry dressing as needed Special Instructions: Schedule a follow up appointment with Dr. Smith in 1 week for staple removal and biopsy results. Take tylenol or motrin as needed for pain. Take Feosol (iron supplement) for anemia as directed Diet Continue normal diet: No Recommended Diet: Low Residue Activity Full Activity/No Limits: No Pounds, do NOT lift more than: 10 Other activity limits: No heavy lifting or strenous activity x 4 weeks Acute Coronary Syndrome Inclusion Criteria At DC or during hospital stay patient has or had the following: ACS DIAGNOSIS No Discharge Core Measures Meds if any: Prescribed or Continued at Discharge Meds if any: NOT Prescribed or Continued at Discharge Congestive Heart Failure Inclusion Criteria At DC or during hospital stay patient has or had the following: CHF DIAGNOSIS No Discharge Core Measures Meds if any: Prescribed or Continued at Discharge Meds if any: NOT Prescribed or Continued at Discharge Cerebrovascular accident Inclusion Criteria At DC or during hospital stay patient has or had the following: CVA/TIA Diagnosis No Discharge Core Measures Meds if any: Prescribed or Continued at Discharge Meds if any: NOT Prescribed or Continued at Discharge Venous thromboembolism Inclusion Criteria VTE Diagnosis No VTE Type NONE VTE Confirmed by (Test) NONE Discharge Core Measures - Per Current guidelines, there needs to be overlap - treatment for the first 5 days of Warfarin therapy. - If discharged on Warfarin prior to 5 days of - overlap therapy, the patient will need to be - assessed for post discharge needs including - *Post discharge parental anticoagulation - *Warfarin and/or parental anticoagulation education - *Follow up date to check INR post discharge At least 5 days overlap therapy as Inpatient No Meds if any: Prescribed or Continued at Discharge Note: Overlap Therapy is Warfarin and Anticoagulant Meds if any: NOT Prescribed or Continued at Discharge
[2017-03-01 14:46] VITALS: BP 140/70
[2017-03-01 22:58] VITALS: BP 122/72
[2017-03-02 06:38] VITALS: BP 130/68
--- NOTE | 2017-03-02 06:42 | PN- General Surgery ---
See Addendum Subjective Subjective: POD#4 S/P LAP ASSIST RIGHT HEMICOLECTOMY NO MAJOR ISSUES OVERNIGHT TOLERATING FULL LIQUID DIET YESTERDAY DENIES CP, SOB, NO N+V, SOME MILD BELCHING AMBULATING INDEPEDENTLY +BM YESTERDAY Objective Vital Signs and I&Os Vital Signs Date Time Temp Pulse Resp B/P B/P Pulse O2 O2 Flow FiO2 Mean Ox Delivery Rate 03/01 2258 99.8 80 20 122/72 97 Room Air 03/01 1446 99.3 88 20 140/70 97 Room Air 03/01 0715 98.5 70 20 120/64 94 Intake & Output / 0800 / 0000 03/01 1600 / 0800 / 0000 02/28 1600 Intake Total 162 583 7279 1210 1620 980 Output Total 423 774 3736 925 Balance -350 012 329 4383 220 55 Intake, IV 10 120 730 900 800 Intake, Oral 745 340 8179 480 720 180 Number 0 1 0 0 Bowel Movements Output, 25 Gastric Drainage Output, Urine 157 201 4954 900 Patient 160 lb Weight Physical Exam: CV: RRR LUNGS: CLEAR ABD: SOFT, +BS EXT: WARM, DISTAL CMS INTACT NO CALF TENDERNESS BILAT Assessment/Plan Assessment/Plan SURGICAL STABLE PLAN ADVANCE DIET TO LRD F/U AM LABS PROBABLY HOME D/C LATER TODAY CONT OOB/AMBUALTE Core Measures Venous Thromboembolism VTE Risk Factors Age>40 No Mechanical VTE Prophylaxis d/t N/A MechProphylax Ordered No VTE Pharm Prophylaxis d/t NA PharmProphylax ordered
[2017-03-02 08:30] LABS: ABSOLUTE BASOPHIL COUNT 0 /CUMM (0.0-0.2); ABSOLUTE EOSINOPHIL COUNT 0 /CUMM (0.0-0.7); ABSOLUTE GRANULOCYTE CT 4.4 /CUMM (1.4-6.5); ABSOLUTE LYMPH COUNT 1.7 /CUMM (1.2-3.4); ABSOLUTE MONOCYTE COUNT 0.4 /CUMM (0.10-0.60); BASOPHIL % 0.5 % (0.0-2.0); EOSINOPHIL % 0 % (0-5); GRANULOCYTE % 67.8 % (42.2-75.2); HEMATOCRIT 23.8 % (37-47); MEAN CORPUSCULAR HGB 25.8 PG (27.0-31.0); MEAN CORPUSCULAR HGB CONC 32.5 G/DL (33.0-37.0); MEAN CORPUSCULAR VOLUME 79.4 FL (81.0-99.0); MEAN PLATELET VOLUME 8.3 FL (7.4-10.4); PLATELET COUNT 350 /CUMM (130-400); RBC DISTRIBUTION WIDTH 16.3 % (11.5-14.5); RED BLOOD CELL CT 2.99 /CUMM (4.20-5.40); WHITE BLOOD CELL COUNT 6.6 /CUMM (4.8-10.8)
[2017-03-02] MEDS ORDERED: TYLENOL325 M1 PO (11:22)
--- NOTE | 2017-03-02 11:38 | Surgical Discharge Summary ---
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 FH: breast cancer Lung cancer Psychosocial History Where Do You Live? Home Who Do You Live With? Spouse Services at Home: None What is Your Primary Language? Polish Review of Systems: See preoperative H&P Hospital Course Course Attending Physician: Luis MAI,Samuel Mckeon Primary Care Physician: Reyes MAI,[place] Hospital Course: Patient admitted to the surgical service with nasogastric decompression. Findings on CT scan were reviewed and concern was that of progressive ileocolonic obstruction due to neoplasia. The following morning she was taken to the OR for laparoscopic exploration. Right hemicolectomy was performed. Please see operative note. Postoperatively patient did well. Her bowel function returned after 2 days at which time her nasogastric tube was discontinued and she was started on a diet. Allergies: Coded Allergies: fexofenadine (Intermediate, PT FEELS NAUSEA, LOSES BALANCE, FEELS OUT OF MIND ) Significant Procedures: Laparoscopic right hemicolectomy Disposition Summary Disposition Principal Diagnosis: Intestinal obstruction Additional Diagnosis: Acute on chronic blood loss anemia Discharge Disposition: home or self care Discharge Instructions General Discharge Information Code Status: Full Code Patient's Diet: Regular low residual Patient's Activity: No lifting Follow-Up Instructions/Appts: 1 week for staple removal Medications at Discharge Discharge Medications: Continue taking these medications: Phenobarbital (Phenobarbital) 64.8 MG TABLET 1 Tablet ORAL TWICE DAILY Comments: Last Taken: 03/02/17 Time: 0900 Carbamazepine (Carbamazepine) 300 MG CPMP.12HR 1 Capsule ORAL TWICE DAILY Comments: Last Taken: 03/02/17 Time: 0900 Simvastatin (Zocor*) 40 MG TABLET 1 Tablet ORAL Every night Comments: ATORVASTATIN 20MG GIVEN IN HOSPITAL Last Taken: 03/01/17 Time: 1700 Levetiracetam (Levetiracetam) 500 MG TABLET 2 Tablet ORAL TWICE DAILY Qty = 120 Comments: Last Taken: 03/02/17 Time: 0900 Linaclotide (Linzess) 145 MCG CAPSULE 1 Capsule ORAL DAILY Qty = 30 Comments: NOT GIVEN Calcium Citrate/Vitamin D3 (Citracal + D Maximum Caplet) (Unknown Strength) TABLET Unknown Dose ORAL DAILY Comments: NOT GIVEN Start taking the following new medications: Acetaminophen (Tylenol) 325 MG TABLET 650 Milligram ORAL Q4-6H as needed for pain not to exceed 4000MG/24HR per day Qty = 30 No Refills Copies To: Reyes MAI,Stewart
[2017-03-02] MEDS ORDERED: FEOSOL325 MG PO (13:36)
== END 2017-03-02 14:18 | DRG 331 ==
LOC: ERH 19:32 → ERHI 02-26 00:39 → 2NB 02-26 00:39 → ENRESERV 02-26 01:26 → 2NB 02-26 02:11 → ENTRNSPT 02-26 19:33 → CMPTRNSPT 02-26 20:12 → ENPENDDIS 03-02 06:54 → ENTRNSPT 03-02 14:13 → 2NB 03-02 14:18 → EDTRNSPT 03-02 14:35 → EDTRNSPTSTS 03-02 14:35 → CMPTRNSPT 03-02 14:59
PROVIDERS: Physician Assistant; Physician Assistant Medical; Physician Assistant Surgical
PROC: 0DTF4ZZ Resection of Right Large Intestine, Percutaneous Endoscopic Approach (ICD-10-PCS; principal; 2017-02-26)
PROC: 0WQF4ZZ Repair Abdominal Wall, Percutaneous Endoscopic Approach (ICD-10-PCS; 2017-02-26)
DX: C18.9 Malignant neoplasm of colon, unspecified (principal); E78.5 Hyperlipidemia, unspecified; G40.909 Epilepsy, unspecified, not intractable, without status epilepticus; K58.1 Irritable bowel syndrome with constipation
CPT/HCPCS: 2NBSP; 80184; 36415; 74020; 74177; 81001; 82436; 87045; 87086; 87328; 87329; 88309; 93005; 93010; 96361; 96365; 96375; C9399; J0131; J1100; J1644; J1885; J1953; J2405; J2550; J2765; J7042

== ENCOUNTER → 2017-03-30 | Day surgery (SDC) | payer OTHER ==
[~2017-03-30] VITALS: Ht 165.1 cm; Wt 72.1 kg
[~2017-03-30] MED LIST changes: +CITRACAL + D M1 EACH PO; +FEOSOL325 MG PO; +LINZESS145 MC1 PO; +TYLENOL325 M1 PO
--- NOTE | 2017-03-30 13:44 | Operative Report ---
Operative/Inv Procedure Report Surgery Date: 03/30/17 Name of Procedure: Left axillary vein Port-A-Cath with ultrasound and fluoroscopic guidance Pre-Operative Diagnosis: Colon cancer Post-Operative Diagnosis: Same Estimated Blood Loss: scant Surgeon/Department Specialist: Luis MAI,Samuel Mckeon Anesthesia: local monitored anesthesi Implants: PowerPort Operative/Procedure Note Note: Patient brought to the operating room and laid supine. His arm tucked and a roll placed behind the shoulder. His left chest and neck were then prepped and draped. she was sedated. Using ultrasound imaging the left axillary vein was visualized and percutaneously accessed through a left infraclavicular needle stick at the confluence of the axillary vein and cephalic vein, after local anesthesia placed. A wire was placed on the right atrium. Confirmation with fluoroscopic imaging was performed. The left chest was then infiltrated further with local anesthesia an incision made over the wire. An inferiorly based pocket was created with blunt and cautery dissection. The port was placed into the pocket and the catheter measured under fluoroscopic imaging. It was trimmed to 24 cm. Using fluoroscopy the dilator was placed down into the SVC. The wire was removed and passed off the field. The catheter was placed through the peel- away sheath. Sheath was then removed. Final fluoroscopic images show the catheter in the atrial SVC junction. The catheter was aspirated and flushed with concentrated heparin. The port was anchored to the deep subcutaneous tissues tissues with 0 Vicryl suture. The skin was closed with 3-0 and 4-0 Vicryl. Steri-Strips and sterile dressing applied. Sponge and needle counts are correct. CC: Isabell MAI,Sami Jaffe; Reyes MAI,[place]
--- NOTE | 2017-03-30 14:28 | RADIOLOGY REPORT ---
EXAMINATION: XR PORTABLE CHEST CLINICAL INFORMATION: Port placement. Evaluate for pneumothorax. COMPARISON: CT angiogram of the chest 03/22/2017. TECHNIQUE: Portable frontal view of the chest was obtained. FINDINGS: A left upper extremity port has been placed and the catheter has been introduced through the left subclavian vein. The tip of the catheter is located at the cavoatrial junction. No evidence of pneumothorax. Lungs are clear and well expanded. No consolidative disease or effusion. The cardiac silhouette and upper mediastinal contours are normal. No acute osseous finding. IMPRESSION: A left pectoral injection port has been placed. No evidence of pneumothorax.
--- NOTE | 2017-03-30 17:42 | RADIOLOGY REPORT ---
EXAMINATION: CR CHEST/INTRAOPERATIVE FLUOROSCOPY CLINICAL INDICATION: Left-sided Port-A-Cath insertion in OR. COMPARISON: Chest x-ray dated 03/30/2017. TECHNIQUE/FINDINGS: Fluoroscopic equipment was dedicated to the operating room for the performance of an intraoperative procedure. Single spot film was acquired and is archived in PACS. Please refer to operative notes for procedural detail. FLUOROSCOPY TIME: 0.5 minutes. IMPRESSION: Administrative dictation for intraoperative fluoroscopy and image archiving in PACS. Please refer to operative notes for details.
== END ==
LOC: STS 01:54
DX: C18.9 Malignant neoplasm of colon, unspecified (principal); R56.9 Unspecified convulsions
CPT/HCPCS: 71045; C1788; J0690; J2250

== ENCOUNTER 2017-05-03 00:06 | Inpatient (IN) | payer OTHER ==
[~2017-05-03] VITALS: Ht 165.1 cm; Wt 70.3 kg
--- NOTE | 2017-05-03 00:25 | ED GENERAL ADULT ---
History of Present Illness General Chief Complaint: Fever Stated Complaint: BIBA FEVER Source: patient, family Exam Limitations: no limitations Vital Signs & Intake/Output Vital Signs & Intake/Output Vital Signs Date Time Temp Pulse Resp B/P B/P Pulse O2 O2 Flow FiO2 Mean Ox Delivery Rate 05/03 0437 99.0 91 18 122/58 99 Room Air 05/03 0214 96 Room Air 05/03 0045 99.8 05/03 0013 117 18 105/58 98 Room Air Allergies Coded Allergies: fexofenadine (Intermediate, PT FEELS NAUSEA, LOSES BALANCE, FEELS OUT OF MIND ) Reconcile Medications Acetaminophen (Tylenol) 325 MG TABLET 650 MG PO Q4-6H PRN pain Calcium Citrate/Vitamin D3 (Citracal + D Maximum Caplet) (Unknown Strength) TABLET (Unknown Dose) PO DAILY SUPPLEMENT (Reported) Ferrous Sulfate (Feosol) 325 MG (65 MG IRON) TABLET 325 MG PO BID ANEMIA Levetiracetam 500 MG TABLET 2 TAB PO BID SEIZURES (Reported) Linaclotide (Linzess) 145 MCG CAPSULE 1 CAP PO DAILY GI (Reported) Phenobarbital 64.8 MG TABLET 1 TAB PO BID EPILEPSY (Reported) Simvastatin (Zocor*) 40 MG TABLET 1 TAB PO QPM CHOLESTEROL (Reported) Triage Note: PT BIBA FROM HOME C/O FEVER COLD LIKE S/S SINCE 2129. PT IS AUTOMATICALLY DISSATISFIED WITH THIS HOSPITAL DUE TO PREVIOUS VISITS. PT STATES SHE HAS COLON CA AND IS ON CHEMO, PT CURRENTLY HAS A CHEMO PUMP INFUSING IN HER PORT IN LEFT CHEST. PT STATES ITS THE 3 RD SESSION OF CHEMO, PTS VSS. LOW GRADE TEMP OF 99.8. PT STATES SHE BEGAN TO DEVELOP A FEVER AROUND 2129, PT BEGAN CHEMO INFUSION TODAY AT 0930. PT STATED HER TEMP AT HOME WAS 102.5, PT SELF MEDICATED WITH 2 ADVIL PILLS AROUND 2229. PT HAS RIGHT ARM RESTRICTION DUE TO LUMPECTOMY PRIOR YEARS, PT HAS BRACELET APPLIED. PT STATES CHILLS WHEN FEVER BEGAN. PT DENIES WILDE, VOMITTING, DIARREHA, SORE THROAT, ABD PAIN. Triage Nurses Notes Reviewed? yes Onset: Gradual Duration: hour(s): Timing: recent history Injury Environment: home Severity: moderate Modifying Factors: Improves With: rest. Associated Symptoms: fever HPI: 57 yo woman h/o colon cancer, presents with a fever that began this evening. "At first it was 101.5... then it went up to 102.5." She notes that earlier today, she received her chemotherapy. "And then they gave me this pump that I have to wear for the next 46 hours." (the pump is fluorouracil) She notes fatigue, body aches, no fever, chills, diarrhea, dysuria. She is otherwise well. Past History Travel History Traveled to [place] past 21 day No Medical History Any Pertinent Medical History? 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 FH: breast cancer Lung cancer Hx Contributory? No Review of Systems Review of Systems Constitutional: Reports: no symptoms. EENTM: Reports: no symptoms. Respiratory: Reports: no symptoms. Cardiovascular: Reports: no symptoms. GI: Reports: no symptoms. Genitourinary: Reports: no symptoms. Musculoskeletal: Reports: no symptoms. Skin: Reports: no symptoms. Neurological/Psychological: Reports: no symptoms. Hematologic/Endocrine: Reports: no symptoms. Immunologic/Allergic: Reports: no symptoms. All Other Systems: Reviewed and Negative Physical Exam Physical Exam General Appearance: well developed/nourished, no apparent distress Head: atraumatic, normal appearance Eyes: Bilateral: normal appearance, PERRL, EOMI. Ears, Nose, Throat: normal pharynx, normal ENT inspection Neck: normal inspection, supple, full range of motion Respiratory: normal breath sounds, chest non-tender, no respiratory distress, quiet respiration, lungs clear Cardiovascular: regular rate/rhythm Gastrointestinal: normal bowel sounds, soft, non-tender, no organomegaly Rectal: heme negative stool Back: normal inspection, normal range of motion Extremities: normal inspection, normal capillary refill, normal range of motion, no edema Neurologic/Psych: no motor/sensory deficits, awake, alert, oriented x 3 Skin: intact, normal color, warm/dry Core Measures ACS in differential dx? No CVA/TIA Diagnosis: No Sepsis Present: No Sepsis Focused Exam Completed? No Progress Differential Diagnoses I considered the following diagnoses in my evaluation of the patient: neutropenic fever vs other. Plan of Care: Orders Procedure Date/time Status Regular Diet 05/03 B Active CBC WITHOUT DIFFERENTIAL 05/03 06 Active BASIC ELECTROLYTES PLUS BUN&CR 05/03 06 Active TRC EVALUATION (GEN) 05/03 0544 Active Pathway - chart 05/03 0544 Active House Staff 05/03 0544 Active Code Status 05/03 0544 Active Patient Data 05/03 0412 Active Saline Lock 05/03 0409 Active Misc Message 05/03 0409 Active ED Holding Orders 05/03 0409 Active Admit to inpatient 05/03 0409 Active Vital Signs 05/03 0409 Active Code Status 05/03 0409 Complete Add-on Test (ER Only) 05/03 0329 Active PARTIAL THROMBOPLASTIN TIME 05/03 0048 Complete PROTHROMBIN TIME 05/03 0048 Complete D-DIMER 05/03 0028 Complete RAPID VIRAL INFLUENZA A 05/03 0025 Complete BLOOD CULTURE 05/03 0025 Active URINALYSIS 05/03 0025 Complete TROPONIN LEVEL 05/03 0025 Complete LIPASE 05/03 0025 Complete HEPATIC FUNCTION PANEL 05/03 0025 Complete CBC WITHOUT DIFFERENTIAL 05/03 0025 Complete BASIC METABOLIC PANEL 05/03 0025 Complete AMYLASE 05/03 0025 Complete EKG 05/03 0025 Active Intake & Output 05/03 0018 Active US-EXT BILAT VENOUS DOPPLER 05/03 UNK Active Lab Add-on Test 05/03 UNK Active VTE Mechanical Prophylaxis 05/03 UNK Active Vital Signs 05/03 UNK Active Hemoccult 05/03 UNK Active Activity/Ambulation 05/03 UNK Active Current Medications Sig/Danny Start time Last Medication Dose Stop Time Status Admin Atorvastatin Calcium 40 MG 1700 05/03 1700 UNVr (Lipitor) Levetiracetam 1,000 MG BID 05/03 1000 UNVr (Keppra) Phenobarbital 64.8 MG BID 05/03 1000 UNVr Heparin Sodium 25,000 UNIT Q24H 05/03 0330 AC 05/03 (Porcine) 0403 (Heparin) Sodium Chloride 500 ML Laboratory Tests 05/03/17 0256: Urinalysis LIGHT H, Urine Color YEL, Urine Clarity CLEAR, Urine pH 6.5, Ur Specific [place] 1.010, Urine Protein TRACE H, Urine Ketones NEG, Urine Nitrite NEG, Urine Bilirubin NEG, Urine Urobilinogen 0.2, Ur Leukocyte Esterase NEG, Ur Microscopic SEDIMENT EXAMINED, Urine RBC 3-5, Urine WBC 5-10 H, Ur Epithelial Cells MOD H, Hyaline Casts FEW H, Urine Mucus MANY H, Urine Hemoglobin TRACE- INTACT, Urine Glucose NEG 05/03/17 0048: Anion Gap 13, Estimated GFR > 60, BUN/Creatinine Ratio 25.7 H, Glucose 113 H, Calcium 9.4, Total Bilirubin 0.3, Direct Bilirubin 0.2, AST 47 H, ALT 58 H, Alkaline Phosphatase 119, Troponin I 0.02, Total Protein 6.6, Albumin 4.1, Amylase 71, Lipase 131, PT 12.1, INR 1.11, APTT 25, D-Dimer High Sensitivty 7960 H, CBC w Diff MAN DIFF ORDERED, RBC 4.25, MCV 83.8, MCH 28.2, MCHC 33.6, RDW 18.1 H, MPV 7.7, Gran % 88.6 H, Lymphocytes % 3.9 L, Monocytes % 6.6, Eosinophils % 0.8, Basophils % 0.1, Absolute Granulocytes 4.2, Segmented Neutrophils 88 H, Band Neutrophils 1, Absolute Lymphocytes 0.2 L, Lymphocytes 5 L, Monocytes 3, Absolute Monocytes 0.3, Eosinophils 3, Absolute Eosinophils 0 , Absolute Basophils 0, Platelet Estimate ADEQUATE, Normochromic RBCs VERIFIED, Poikilocytosis 1+, Ovalocytes 1+, Stomatocytes FEW, Fld Total RBCs Counted 100 Microbiology 05/03 0134 BLOOD: Blood Culture - RECD 05/03 53 NASOPHARYN: Influenza Virus A & B Rapid Smear - COMP 05/03 004 BLOOD: Blood Culture - RECD Diagnostic Imaging: Viewed by Me: CT Scan. Discussed w/RAD: CT Scan. Radiology Impression: PATIENT: RHODA MUNIZ PRESENT AGE: 57 PATIENT ACCOUNT NO: [id number] : 56 LOCATION: [facility] ORDERING PHYSICIAN: Juanpablo Crowell MD SERVICE DATE: 05/03/174726 EXAM TYPE: CAT - CTA CHEST-PULMONARY EMBOLISM EXAMINATION: CT ANGIOGRAM OF THE CHEST WITH AND WITHOUT CONTRAST (CT PULMONARY ANGIOGRAM FOR PE) CLINICAL INFORMATION: Reason for Study:
Presumptive Dx: fever, cancer, +dimer
Signs Symptoms: room 1
COMPARISON: 03/22/2017 TECHNIQUE: Prior to contrast administration, noncontrast localization images were obtained. Subsequently, multidetector volumetric imaging was performed from the thoracic inlet to below the diaphragms following the administration of 65 mL Optiray 350 intravenous contrast. No contrast reaction reported. Sagittal, coronal, and MIP oblique sagittal reformatted images were obtained on the CT workstation, uploaded to PACS, and reviewed. Total exam dose-length product 363.27 mGy-cm. FINDINGS: QUALITY OF STUDY/CONTRAST BOLUS: Satisfactory PULMONARY ARTERIES: There are proximal segmental emboli in the right lower lobe. Tiny segmental emboli are present in the right upper lobe. Segmental to subsegmental emboli are present in the left lower lobe. THORACIC AORTA: No aneurysm or dissection. LUNG: There is subsegmental atelectasis in the lingula and left lower lobe. No regions of consolidation bilaterally. There is a stable 2 mm left upper lobe nodule on image 81/476. There is a stable 3 mm left lower lobe nodule on image 323/476. There is a stable 2 mm right upper lobe nodule on image 127/476 anteriorly. There is a stable 2 mm right upper lobe nodule on image 65/476 medially. There is a stable 2 mm right lower lobe nodule on image 304/476. PLEURA: No pleural effusion or pneumothorax. MEDIASTINUM: The visualized thyroid gland is unremarkable. There are multiple scattered subcentimeter mediastinal lymph nodes with borderline enlargement in the right subcarinal region, mildly increased in prominence from prior. Cardiac size is within normal limits; no pericardial effusion. No evidence of septal bowing or right heart strain. CHEST WALL/AXILLA: No axillary or internal mammary lymphadenopathy. OSSEOUS STRUCTURES: Degenerative endplate changes are noted in the spine. UPPER ABDOMEN: Unremarkable. No reflux of contrast into the hepatic veins to suggest elevated right heart pressures. IMPRESSION: 1. Bilateral segmental to subsegmental pulmonary emboli, in the bilateral lower lobes and right upper lobe. 2. Redemonstration of several tiny bilateral lung nodules. Though these are nonspecific, metastatic disease remains a possibility. 3. Borderline right subcarinal lymphadenopathy, for which attention on follow-up is recommended. VTE : negative This critical result was discussed with Juanpablo Crowell on 2017 3:28 AM, and it was ascertained that the content and urgency of the report was understood at the time of direct communication. DICTATED BY: Catracho Pastor MD DATE/TIME DICTATED:05/03/17315 CONDITIONING YARD SUPERVISOR:SIMBA DATE/TIME TRANSCRIBED:05/03/17315 CONFIDENTIAL, DO NOT COPY WITHOUT APPROPRIATE AUTHORIZATION. <Electronically signed in Other Vendor System> SIGNED BY: Catracho Pastor MD 05/03/17 0332 Initial ED EKG: left axis deviation. nsr, no acute changes. Departure Departure Disposition: STILL A PATIENT Condition: Stable Clinical Impression Primary Impression: Fever Secondary Impressions: Colon cancer, Pulmonary emboli Referrals: Stewart Chambers MD (PCP/Family) Departure Forms: Customer Survey General Discharge Information Comments 05/03/17, 3:30am... discussed with myles radiologist... pt with pulmonary emboli. 05/03/17, 3:49... discussed with covering MD for dr. wood... he affirms plan for admission and iv heparin. Admission Note Spoke With: Stewart Chambers MD Documentation of Exam: Documentation of any treatments & extenuating circumstances including Concerns Regarding Discharge (functional status, medication knowledge or non-compliance, living conditions, etc.) that warrant an admission rather than observation: pt with colon cancer, undergoing chemo, now with pulmonary emboli. pt merits iv heparin with transition to oral anticoagulants. Critical Care Note Critical Care Note Critical Care Time: 30-74 min
[2017-05-03 01:05] LABS: ABSOLUTE BASOPHIL COUNT 0 /CUMM (0.0-0.2); ABSOLUTE EOSINOPHIL COUNT 0 /CUMM (0.0-0.7); ABSOLUTE GRANULOCYTE CT 4.2 /CUMM (1.4-6.5); ABSOLUTE LYMPH COUNT 0.2 /CUMM (1.2-3.4); ABSOLUTE MONOCYTE COUNT 0.3 /CUMM (0.10-0.60); BASOPHIL % 0.1 % (0.0-2.0); EOSINOPHIL % 0.8 % (0-5); GRANULOCYTE % 88.6 % (42.2-75.2); HEMATOCRIT 35.6 % (37-47); MEAN CORPUSCULAR HGB 28.2 PG (27.0-31.0); MEAN CORPUSCULAR HGB CONC 33.6 G/DL (33.0-37.0); MEAN CORPUSCULAR VOLUME 83.8 FL (81.0-99.0); MEAN PLATELET VOLUME 7.7 FL (7.4-10.4); PLATELET COUNT 113 /CUMM (130-400); RBC DISTRIBUTION WIDTH 18.1 % (11.5-14.5); RED BLOOD CELL CT 4.25 /CUMM (4.20-5.40); WHITE BLOOD CELL COUNT 4.8 /CUMM (4.8-10.8)
--- NOTE | 2017-05-03 03:32 | CT SCAN REPORT ---
EXAMINATION: CT ANGIOGRAM OF THE CHEST WITH AND WITHOUT CONTRAST (CT PULMONARY ANGIOGRAM FOR PE) CLINICAL INFORMATION: Reason for Study:
Presumptive Dx: fever, cancer, +dimer
Signs Symptoms: room 1
COMPARISON: 03/22/2017 TECHNIQUE: Prior to contrast administration, noncontrast localization images were obtained. Subsequently, multidetector volumetric imaging was performed from the thoracic inlet to below the diaphragms following the administration of 65 mL Optiray 350 intravenous contrast. No contrast reaction reported. Sagittal, coronal, and MIP oblique sagittal reformatted images were obtained on the CT workstation, uploaded to PACS, and reviewed. Total exam dose-length product 363.27 mGy-cm. FINDINGS: QUALITY OF STUDY/CONTRAST BOLUS: Satisfactory PULMONARY ARTERIES: There are proximal segmental emboli in the right lower lobe. Tiny segmental emboli are present in the right upper lobe. Segmental to subsegmental emboli are present in the left lower lobe. THORACIC AORTA: No aneurysm or dissection. LUNG: There is subsegmental atelectasis in the lingula and left lower lobe. No regions of consolidation bilaterally. There is a stable 2 mm left upper lobe nodule on image 81/476. There is a stable 3 mm left lower lobe nodule on image 323/476. There is a stable 2 mm right upper lobe nodule on image 127/476 anteriorly. There is a stable 2 mm right upper lobe nodule on image 65/476 medially. There is a stable 2 mm right lower lobe nodule on image 304/476. PLEURA: No pleural effusion or pneumothorax. MEDIASTINUM: The visualized thyroid gland is unremarkable. There are multiple scattered subcentimeter mediastinal lymph nodes with borderline enlargement in the right subcarinal region, mildly increased in prominence from prior. Cardiac size is within normal limits; no pericardial effusion. No evidence of septal bowing or right heart strain. CHEST WALL/AXILLA: No axillary or internal mammary lymphadenopathy. OSSEOUS STRUCTURES: Degenerative endplate changes are noted in the spine. UPPER ABDOMEN: Unremarkable. No reflux of contrast into the hepatic veins to suggest elevated right heart pressures. IMPRESSION: 1. Bilateral segmental to subsegmental pulmonary emboli, in the bilateral lower lobes and right upper lobe. 2. Redemonstration of several tiny bilateral lung nodules. Though these are nonspecific, metastatic disease remains a possibility. 3. Borderline right subcarinal lymphadenopathy, for which attention on follow-up is recommended. VTE: negative This critical result was discussed with Juanpablo Crowell on 05/03/2017 3:28 AM, and it was ascertained that the content and urgency of the report was understood at the time of direct communication.
[2017-05-03 04:18] LABS: PT 12.1 SEC (9.4-12.5); PTT 25 SEC (25-37)
--- NOTE | 2017-05-03 04:45 | History & Physical ---
See Addendum Efrain MAI,[facility] 05/03/17 0444: General Information and HPI MD Statement: I have seen and personally examined RHODA DILLARD and documented this H&P. The patient is a 57 year old F who presented with a patient stated chief complaint of [fever]. Source of Information: patient, family History of Present Illness: 57 yo F with pmhx of colorectal cancer on chemotherapy, seizures, and hld presenting for a chief complaint of fever of 101.5. She was recently started on 5 fluorouracil and noticed fevers/rigors after chemotherapy. She deneis any chills, diarrhea, chest pain, shortness of breath, and palpitations. 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 FH: breast cancer Lung cancer Psychosocial History Services at Home: None Primary Language: Turkmen ETOH Use: denies use Review of Systems Review of Systems Constitutional: Reports: see HPI, fever. Cardiovascular: Denies: chest pain. Respiratory: Denies: short of breath. Exam & Diagnostic Data Last 24 Hrs of Vital Signs/I&O Vital Signs Date Time Temp Pulse Resp B/P B/P Pulse O2 O2 Flow FiO2 Mean Ox Delivery Rate 05/03 0701 99.6 90 18 129/60 98 Room Air 05/03 0437 99.0 91 18 122/58 99 Room Air 05/03 0214 96 Room Air 05/03 0045 99.8 05/03 0013 117 18 105/58 98 Room Air Intake & Output 05/03 1600 05/03 0800 05/03 0000 Intake Total Output Total Balance Patient 155 lb 155 lb Weight Weight Reported by Patient Measurement Method Physical Exam General Appearance Alert, Oriented X3, Patient only allowing limited exam HEENT neck lymphadenopathy Lungs Clear to Auscultation, Normal Air Movement Abdomen Normal Bowel Sounds, Soft, No Tenderness Extremities CVA tenderness, no pedal edema Last 24 Hrs of Labs/Uriel: Laboratory Tests 05/03/17 1015: APTT > 120 *H 05/03/17 0645: Anion Gap 8, Estimated GFR > 60, BUN/Creatinine Ratio 22.9, CBC w Diff MAN DIFF ORDERED, RBC 4.02 L, MCV 84.1, MCH 28.2, MCHC 33.5, RDW 18.6 H, MPV 7.5, Gran % 84.4 H, Lymphocytes % 6.3 L, Monocytes % 6.2, Eosinophils % 3.0, Basophils % 0.1, Absolute Granulocytes 3.6, Segmented Neutrophils 79 H, Band Neutrophils 0, Absolute Lymphocytes 0.3 L, Lymphocytes 9 L, Monocytes 7, Absolute Monocytes 0.3, Eosinophils 4, Absolute Eosinophils 0.1, Absolute Basophils 0, Platelet Estimate ADEQUATE, Normochromic RBCs VERIFIED, Poikilocytosis 1+, Ovalocytes 1+, Stomatocytes FEW, Fld Total RBCs Counted 100 05/03/17 0256: Urinalysis LIGHT H, Urine Color YEL, Urine Clarity CLEAR, Urine pH 6.5, Ur Specific [place] 1.010, Urine Protein TRACE H, Urine Ketones NEG, Urine Nitrite NEG, Urine Bilirubin NEG, Urine Urobilinogen 0.2, Ur Leukocyte Esterase NEG, Ur Microscopic SEDIMENT EXAMINED, Urine RBC 3-5, Urine WBC 5-10 H, Ur Epithelial Cells MOD H, Hyaline Casts FEW H, Urine Mucus MANY H, Urine Hemoglobin TRACE- INTACT, Urine Glucose NEG 05/03/17 0048: Anion Gap 13, Estimated GFR > 60, BUN/Creatinine Ratio 25.7 H, Glucose 113 H, Calcium 9.4, Total Bilirubin 0.3, Direct Bilirubin 0.2, AST 47 H, ALT 58 H, Alkaline Phosphatase 119, Troponin I 0.02, Total Protein 6.6, Albumin 4.1, Amylase 71, Lipase 131, PT 12.1, INR 1.11, APTT 25, D-Dimer High Sensitivty 7960 H, CBC w Diff MAN DIFF ORDERED, RBC 4.25, MCV 83.8, MCH 28.2, MCHC 33.6, RDW 18.1 H, MPV 7.7, Gran % 88.6 H, Lymphocytes % 3.9 L, Monocytes % 6.6, Eosinophils % 0.8, Basophils % 0.1, Absolute Granulocytes 4.2, Segmented Neutrophils 88 H, Band Neutrophils 1, Absolute Lymphocytes 0.2 L, Lymphocytes 5 L, Monocytes 3, Absolute Monocytes 0.3, Eosinophils 3, Absolute Eosinophils 0 , Absolute Basophils 0, Platelet Estimate ADEQUATE, Normochromic RBCs VERIFIED, Poikilocytosis 1+, Ovalocytes 1+, Stomatocytes FEW, Fld Total RBCs Counted 100 Microbiology 05/03 0755 URINE ROUT: Urine Culture - COLB 05/03 0134 BLOOD: Blood Culture - RECD 05/03 0054 NASOPHARYN: Influenza Virus A & B Rapid Smear - COMP 05/03 0049 BLOOD: Blood Culture - RECD Assessment/Plan Assessment: A: 57 yo F with pmhx of colorectal cancer on chemotherapy, seizures, and hld presenting for a chief complaint of fever of 101.5. found to have bilateral PE. P: #bilateral PE in the setting of colon cancer D-dimer 7960 trops .02 CTA chest: 1. Bilateral segmental to subsegmental pulmonary emboli, in the bilateral lower lobes and right upper lobe. 2. Redemonstration of several tiny bilateral lung nodules. Though these are nonspecific, metastatic disease remains a possibility. 3. Borderline right subcarinal lymphadenopathy, for which attention on follow-up is recommended. -consider trending trops, ekg for R heart strain -heparin drip with plans to switch to NOAC -f/u echo -f/u doppler for DVT #colon cancer -Oncology consult #hx Seizures -cont phenobarbital and levetircetam #DVT prophylaxis with heparin drip # FULL CODE As Ranked By This Provider Problem List: 1. Pulmonary emboli 2. Colon cancer 3. History of seizure Core Measures/Misc (11/14) Acute Coronary Syndrome ACS Diagnosis: No Congestive Heart Failure Congestive Heart Failure Diagnosis No Cerebrovascular Accident CVA/TIA Diagnosis: No VTE (View Protocol) VTE Risk Factors Acute Medical Illness No Mechanical VTE Prophylaxis d/t Other No VTE Pharm Prophylaxis d/t NA PharmProphylax ordered Sepsis (View protocol) Sepsis Present: No Swetha Brennanet 05/03/17 0500: General Information and HPI Allergies/Medications Home Med list Acetaminophen (Tylenol) 325 MG TABLET 650 MG PO Q4-6H PRN pain Calcium Citrate/Vitamin D3 (Citracal + D Maximum Caplet) (Unknown Strength) TABLET (Unknown Dose) PO DAILY SUPPLEMENT (Reported) Ferrous Sulfate (Feosol) 325 MG (65 MG IRON) TABLET 325 MG PO BID ANEMIA Levetiracetam 500 MG TABLET 2 TAB PO BID SEIZURES (Reported) Linaclotide (Linzess) 145 MCG CAPSULE 1 CAP PO DAILY GI (Reported) Phenobarbital 64.8 MG TABLET 1 TAB PO BID EPILEPSY (Reported) Simvastatin (Zocor*) 40 MG TABLET 1 TAB PO QPM CHOLESTEROL (Reported) Resident Review Statement Resident Statement: examined this patient, discussed with sports marketing internship, amended to note Other Findings: Ms. Dillard has a past medical history of colon cancer on chemotherapy, hyperlipidemia, seizure was brought in with a chief concern of fever with a MAXIMUM TEMPERATURE of 101.5. She was recently started on chemotherapy on 5 fluorouracil. She did not have any fever, chills, diarrhea. She did not have any chest pain, shortness of breath, palpitations. No recent long travel, history of blood clots. She also has a family history of breast cancer and lung cancer in mother. At the time of admission, vitals-temperature 19.0, pulse rate 91, blood pressure 122/58, 19% on room air. On examination, she was comfortably lying in her bed, but examination was limited. She had pallor, no lymphadenopathy. No erythema, discharge was found around the port area. No pedal edema, abdominal tenderness, CVA tenderness was found. Heart and lung examination was within normal limits. Pertinent lab findings-W BC 4.8, hemoglobin 12.0, hematocrit 35.6, platelets 113. His last rectal is-sodium 138, potassium 4.0, chloride 102, BUN 18, creatinine 0.7, liver chemistries AST 47, ALT 58, alkaline phosphatase 119, troponin 0.02. D-dimer 7960. CTA chest: 1. Bilateral segmental to subsegmental pulmonary emboli, in the bilateral lower lobes and right upper lobe. 2. Redemonstration of several tiny bilateral lung nodules. Though these are nonspecific, metastatic disease remains a possibility. 3. Borderline right subcarinal lymphadenopathy, for which attention on follow-up is recommended. Problem list: 1. PE 2. h/o Colon cancer stage III s/p chemo 3. h/o Seizures Etiology in her case is likely due to cancer, leading to possible blood clots which would be a unprovoked PE. In regards, fever which would likely be due to secondary to chemotherapy. However, infectious causes need to be ruled out. Plan: 1. Pulmonary embolism- - Continue IV heparin - Echocardiogram in a.m. - Serial echocardiograms and cardiac enzymes - Monitor vitals every 8 hourly. - Lower extremity Dopplers to rule out any DVT. - Could be changed to a DOAC in the am. 2. Colon cancer- - Hold chemo drugs for now. - Dr Whyte notified. 3. Seizures- - continue keppra,phenobarbital - check levels of phenobarb. Unfortunately the levels coulnd be checked as a routine labs; so defer the decision to check levels to the primary team in the a.m. - seizure precautions. Housekeeping- DVT prophylaxis-IV heparin CODE STATUS-full Diet-regular diet.
[2017-05-03 06:55] LABS: ABSOLUTE BASOPHIL COUNT 0 /CUMM (0.0-0.2); ABSOLUTE EOSINOPHIL COUNT 0.1 /CUMM (0.0-0.7); ABSOLUTE GRANULOCYTE CT 3.6 /CUMM (1.4-6.5); ABSOLUTE LYMPH COUNT 0.3 /CUMM (1.2-3.4); ABSOLUTE MONOCYTE COUNT 0.3 /CUMM (0.10-0.60); BASOPHIL % 0.1 % (0.0-2.0); GRANULOCYTE % 84.4 % (42.2-75.2); HEMATOCRIT 33.8 % (37-47); MEAN CORPUSCULAR HGB 28.2 PG (27.0-31.0); MEAN CORPUSCULAR HGB CONC 33.5 G/DL (33.0-37.0); MEAN CORPUSCULAR VOLUME 84.1 FL (81.0-99.0); MEAN PLATELET VOLUME 7.5 FL (7.4-10.4); PLATELET COUNT 106 /CUMM (130-400); RBC DISTRIBUTION WIDTH 18.6 % (11.5-14.5); RED BLOOD CELL CT 4.02 /CUMM (4.20-5.40); WHITE BLOOD CELL COUNT 4.3 /CUMM (4.8-10.8)
--- NOTE | 2017-05-03 07:08 | Cons- Oncology ---
General Information and HPI Consulting Request Date of Consult: 05/03/17 Requested By: Stewart Chambers MD History of Present Illness: Donna Cruz is a 57-year-old woman with a recent diagnosis of stage III colon cancer. After her last and yesterday's chemotherapy she manifested rigors and fever. She denied new shortness of breath cough chest pain or hemoptysis. She denied leg swelling. As well as patient denied productive cough, significant abdominal pain or dysuria Allergies/Medications Allergies: Coded Allergies: fexofenadine (Intermediate, PT FEELS NAUSEA, LOSES BALANCE, FEELS OUT OF MIND ) Home Med List: Acetaminophen (Tylenol) 325 MG TABLET 650 MG PO Q4-6H PRN pain Calcium Citrate/Vitamin D3 (Citracal + D Maximum Caplet) (Unknown Strength) TABLET (Unknown Dose) PO DAILY SUPPLEMENT (Reported) Ferrous Sulfate (Feosol) 325 MG (65 MG IRON) TABLET 325 MG PO BID ANEMIA Levetiracetam 500 MG TABLET 2 TAB PO BID SEIZURES (Reported) Linaclotide (Linzess) 145 MCG CAPSULE 1 CAP PO DAILY GI (Reported) Phenobarbital 64.8 MG TABLET 1 TAB PO BID EPILEPSY (Reported) Simvastatin (Zocor*) 40 MG TABLET 1 TAB PO QPM CHOLESTEROL (Reported) Current Medications: Current Medications Sig/Danny Start time Last Medication Dose Route Stop Time Status Admin Atorvastatin Calcium 40 MG 1700 05/03 1700 AC PO Heparin Sodium 0 .STK-MED ONE 05/03 0359 DC (Porcine) .ROUTE Heparin Sodium 5,000 UNIT ONCE ONE 05/03 0330 DC 05/03 (Porcine) IV 05/03 0331 0403 Heparin Sodium 25,000 UNIT Q24H 05/03 0330 AC / (Porcine) IV 0403 Sodium Chloride 500 ML Levetiracetam 1,000 MG BID / 1000 AC PO Phenobarbital 64.8 MG BID 05/03 1000 AC PO Sodium Chloride 1,000 ML BOLUS ONE 05/03 0200 DC / IV / 0259 0213 Review of Systems Review of Systems: Patient denies headache or dizziness. Patient denies nausea vomiting or change in bowel habits. 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 FH: breast cancer Lung cancer Psychosocial History Services at Home: None Primary Language: Croatian ETOH Use: denies use Exam & Diagnostic Data Vital Signs and I&O Vital Signs Date Time Temp Pulse Resp B/P B/P Pulse O2 O2 Flow FiO2 Mean Ox Delivery Rate 05/03 0701 99.6 90 18 129/60 98 Room Air / 0437 99.0 91 18 122/58 99 Room Air / 0214 96 Room Air / 0045 99.8 / 0013 117 18 105/58 98 Room Air Intake & Output 05/03 0800 / 0000 /05 1600 Intake Total Output Total Balance Patient 155 lb Weight Weight Reported by Patient Measurement Method Gen.: in NAD ENT: Sclera anicteric Chest: Normal respiratory effort, clear breath sounds Cor: RRR, no extra sounds Abdomen: Soft, bowel sounds present, no tenderness, no rebound Extremities: Without clubbing, cyanosis, or asymmetric edema Neurology: Alert and oriented 3, no gross deficit Skin: No rashes Last 48 Hours of Lab Results: Laboratory Tests 05/03 05/03 0645 0256 Chemistry Sodium Pending Potassium Pending Chloride Pending Carbon Dioxide Pending Anion Gap Pending BUN Pending Creatinine Pending BUN/Creatinine Ratio Pending Hematology CBC w Diff Pending WBC Pending RBC Pending Hgb Pending Hct Pending MCV Pending MCH Pending MCHC Pending RDW Pending Plt Count Pending MPV Pending Gran % Pending Lymphocytes % Pending Monocytes % Pending Eosinophils % Pending Basophils % Pending Absolute Granulocytes Pending Absolute Lymphocytes Pending Absolute Monocytes Pending Absolute Eosinophils Pending Absolute Basophils Pending Urines Urinalysis LIGHT H Urine Color (YEL,AMB,STR) YEL Urine Clarity (CLEAR) CLEAR Urine pH (5.0 - 8.0) 6.5 Ur Specific [place] (1.001 - 1.035) 1.010 Urine Protein (NEG,<30 MG/DL) TRACE H Urine Ketones (NEG) NEG Urine Nitrite (NEG) NEG Urine Bilirubin (NEG) NEG Urine Urobilinogen (0.1 - 1.0 EU/dl) 0.2 Ur Leukocyte Esterase (NEG) NEG Ur Microscopic SEDIMENT EXAMINED Urine RBC (0 - 5 /HPF) 3-5 Urine WBC (0 - 2 /HPF) 5-10 H Ur Epithelial Cells (NONE,FEW) MOD H Hyaline Casts (0/LPF) FEW H Urine Mucus (FEW,NONE) MANY H Urine Hemoglobin (NEG) TRACE-INTACT Urine Glucose (N MG/DL) NEG 05/03 0048 Chemistry Sodium (137 - 145 mmol/L) 138 Potassium (3.5 - 5.1 mmol/L) 4.0 Chloride (98 - 107 mmol/L) 102 Carbon Dioxide (22 - 30 mmol/L) 23 Anion Gap (5 - 16) 13 BUN (7 - 17 mg/dL) 18 H Creatinine (0.5 - 1.0 mg/dL) 0.7 Estimated GFR (>60 ml/min) > 60 BUN/Creatinine Ratio (7 - 25 %) 25.7 H Glucose (65 - 99 mg/dL) 113 H Calcium (8.4 - 10.2 mg/dL) 9.4 Total Bilirubin (0.2 - 1.3 mg/dL) 0.3 Direct Bilirubin (< 0.4 mg/dL) 0.2 AST (14 - 36 U/L) 47 H ALT (9 - 52 U/L) 58 H Alkaline Phosphatase (<127 U/L) 119 Troponin I (< 0.11 ng/ml) 0.02 Total Protein (6.3 - 8.2 g/dL) 6.6 Albumin (3.5 - 5.0 g/dL) 4.1 Amylase (30 - 110 U/L) 71 Lipase (23 - 300 U/L) 131 Coagulation PT (9.4 - 12.5 SEC) 12.1 INR (0.90 - 1.19) 1.11 APTT (25 - 37 SEC) 25 D-Dimer High Sensitivty (0 - 243 ng/ml) 7960 H Hematology CBC w Diff MAN DIFF ORDERED WBC (4.8 - 10.8 /CUMM) 4.8 RBC (4.20 - 5.40 /CUMM) 4.25 Hgb (12.0 - 16.0 G/DL) 12.0 Hct (37 - 47 %) 35.6 L MCV (81.0 - 99.0 FL) 83.8 MCH (27.0 - 31.0 PG) 28.2 MCHC (33.0 - 37.0 G/DL) 33.6 RDW (11.5 - 14.5 %) 18.1 H Plt Count (130 - 400 /CUMM) 113 L MPV (7.4 - 10.4 FL) 7.7 Gran % (42.2 - 75.2 %) 88.6 H Lymphocytes % (20.5 - 51.1 %) 3.9 L Monocytes % (1.7 - 9.3 %) 6.6 Eosinophils % (0 - 5 %) 0.8 Basophils % (0.0 - 2.0 %) 0.1 Absolute Granulocytes (1.4 - 6.5 /CUMM) 4.2 Segmented Neutrophils (42.2 - 75.2 %) 88 H Band Neutrophils (0.0 - 5.0 %) 1 Absolute Lymphocytes (1.2 - 3.4 /CUMM) 0.2 L Lymphocytes (20.5 - 51.1 %) 5 L Monocytes (1.7 - 9.3 %) 3 Absolute Monocytes (0.10 - 0.60 /CUMM) 0.3 Eosinophils (0 - 5.0 %) 3 Absolute Eosinophils (0.0 - 0.7 /CUMM) 0 Absolute Basophils (0.0 - 0.2 /CUMM) 0 Platelet Estimate (ADEQUATE) ADEQUATE Normochromic RBCs VERIFIED Poikilocytosis 1+ Ovalocytes 1+ Stomatocytes FEW Other Body Source Fld Total RBCs Counted (%) 100 Imaging/Other Studies: YLL-enltf-lbqfjycib emboli, stable pulmonary nodules Assessment/Plan Assessment: 1. Fever-I think it is most likely that last night episode represents toxicity from chemotherapy rather than acute pulmonary embolism. Patient had a similar episode 2 weeks ago with her chemotherapy. Recommend- Check cultures Continue to observe off antibiotics Patient will have a rearrangement of chemotherapy as an outpatient 2. Pulmonary embolism- Recommend- Obtained Doppler ultrasound of lower extremity Rapid conversion from IV heparin to oral anticoagulant, would not recommend Lovenox for this patient Hopefully patient be discharged soon 3. Stage III colon cancer-continue infusion of 5-FU until tomorrow, I will arrange discontinuation of pump I have discussed this with the patient and her Recommendations: .. Consult Acknowledgment - Thank you for your consult request.
--- NOTE | 2017-05-03 10:10 | Admission Certification ---
Admission Certification Certification Statement - As attending physician, I certify that at the time of - admission, based on clinical presentation, severity of - symptoms, need for further diagnostic testing and - therapeutic interventions, and risk of adverse outcomes - without in-hospital treatment, in my clinical assessment, - this patient requires an acute hospital stay for a minimum - of two nights or longer. I have also considered psychsocial - factors such as support system, advanced age, financial - issues, cognitive issues, and failed out-patient treatments, - past re-admission history, safety of patient, and lack of - compliance as applicable. Specific rationale supporting this admission is: Fever after chemotherapy and pulmonary emboli on CTA of the chest
--- NOTE | 2017-05-03 10:13 | PN- Att Addend ---
Attending Addendum Attending Brief Note 57-year-old white female came in because of fever and chills. This apparently started after her last chemotherapy treatment earlier. The last time she had chemotherapy treatment she also developed a fever and she denies any shortness of breath no leg pains in the ER a CT of the chest was performed and showed pulmonary emboli that she was started on heparin and she will have an ultrasound of her lower extremities to rule out DVT Dr. Ley already saw the patient. Will get all the cultures and keep off antibiotics unless something grows on the cultures. Will eventually switched to by mouth anticoagulation and will pick that one was most appropriate in this case Intake & Output 05/03 1600 05/03 0800 05/03 0000 Intake Total Output Total Balance Patient 155 lb 155 lb Weight Weight Reported by Patient Measurement Method Current Medications Sig/Danny Start time Last Medication Dose Route Stop Time Status Admin Atorvastatin Calcium 40 MG 1700 05/03 1700 AC PO Heparin Sodium 0 .STK-MED ONE 05/03 0359 DC (Porcine) .ROUTE Heparin Sodium 5,000 UNIT ONCE ONE 05/03 0330 DC 05/03 (Porcine) IV 05/03 0331 0403 Heparin Sodium 25,000 UNIT Q24H 05/03 0330 AC 05/03 (Porcine) IV 0403 Sodium Chloride 500 ML Levetiracetam 1,000 MG BID 05/03 1000 AC / PO 0910 Phenobarbital 64.8 MG BID 05/03 1000 AC / PO 0910 Sodium Chloride 1,000 ML BOLUS ONE 05/03 0200 DC / IV 05/03 0259 0213 Laboratory Tests 05/03/17 0645: Anion Gap 8, Estimated GFR > 60, BUN/Creatinine Ratio 22.9, CBC w Diff MAN DIFF ORDERED, RBC 4.02 L, MCV 84.1, MCH 28.2, MCHC 33.5, RDW 18.6 H, MPV 7.5, Gran % 84.4 H, Lymphocytes % 6.3 L, Monocytes % 6.2, Eosinophils % 3.0, Basophils % 0.1, Absolute Granulocytes 3.6, Segmented Neutrophils 79 H, Band Neutrophils 0, Absolute Lymphocytes 0.3 L, Lymphocytes 9 L, Monocytes 7, Absolute Monocytes 0.3, Eosinophils 4, Absolute Eosinophils 0.1, Absolute Basophils 0, Platelet Estimate ADEQUATE, Normochromic RBCs VERIFIED, Poikilocytosis 1+, Ovalocytes 1+, Stomatocytes FEW, Fld Total RBCs Counted 100 05/03/17 0256: Urinalysis LIGHT H, Urine Color YEL, Urine Clarity CLEAR, Urine pH 6.5, Ur Specific [place] 1.010, Urine Protein TRACE H, Urine Ketones NEG, Urine Nitrite NEG, Urine Bilirubin NEG, Urine Urobilinogen 0.2, Ur Leukocyte Esterase NEG, Ur Microscopic SEDIMENT EXAMINED, Urine RBC 3-5, Urine WBC 5-10 H, Ur Epithelial Cells MOD H, Hyaline Casts FEW H, Urine Mucus MANY H, Urine Hemoglobin TRACE- INTACT, Urine Glucose NEG 05/03/17 0048: Anion Gap 13, Estimated GFR > 60, BUN/Creatinine Ratio 25.7 H, Glucose 113 H, Calcium 9.4, Total Bilirubin 0.3, Direct Bilirubin 0.2, AST 47 H, ALT 58 H, Alkaline Phosphatase 119, Troponin I 0.02, Total Protein 6.6, Albumin 4.1, Amylase 71, Lipase 131, PT 12.1, INR 1.11, APTT 25, D-Dimer High Sensitivty 7960 H, CBC w Diff MAN DIFF ORDERED, RBC 4.25, MCV 83.8, MCH 28.2, MCHC 33.6, RDW 18.1 H, MPV 7.7, Gran % 88.6 H, Lymphocytes % 3.9 L, Monocytes % 6.6, Eosinophils % 0.8, Basophils % 0.1, Absolute Granulocytes 4.2, Segmented Neutrophils 88 H, Band Neutrophils 1, Absolute Lymphocytes 0.2 L, Lymphocytes 5 L, Monocytes 3, Absolute Monocytes 0.3, Eosinophils 3, Absolute Eosinophils 0 , Absolute Basophils 0, Platelet Estimate ADEQUATE, Normochromic RBCs VERIFIED, Poikilocytosis 1+, Ovalocytes 1+, Stomatocytes FEW, Fld Total RBCs Counted 100 Microbiology 05/03 005 NASOPHARYN: Influenza Virus A & B Rapid Smear - COMP Vital Signs Date Time Temp Pulse Resp B/P B/P Pulse O2 O2 Flow FiO2 Mean Ox Delivery Rate 05/03 0701 99.6 90 18 129/60 98 Room Air 05/03 0437 99.0 91 18 122/58 99 Room Air 05/03 0214 96 Room Air 05/03 0045 99.8 05/03 0013 117 18 105/58 98 Room Air
[2017-05-03 11:13] LABS: PTT > 120 SEC (25-37)
--- NOTE | 2017-05-03 14:16 | ULTRASOUND REPORT ---
EXAMINATION: BILATERAL LOWER EXTREMITY DEEP VENOUS ULTRASOUND CLINICAL INFORMATION: 57-year-old female with pulmonary embolus. COMPARISON: No similar prior examinations are available for comparison. TECHNIQUE: Duplex Doppler imaging with compression maneuvers were performed of the bilateral lower extremity deep venous systems. FINDINGS: The bilateral visualized common femoral, femoral and popliteal veins demonstrate normal compressibility and color flow without evidence of venous thrombosis. Visualized portions of the bilateral calf veins demonstrate normal color fill-in suggesting patency. There is no evidence of a Stone's cyst. IMPRESSION: No evidence of deep venous thrombosis involving the bilateral lower extremities.
[2017-05-03 15:33] VITALS: BP 104/64
[2017-05-03 19:22] LABS: PTT 108 SEC (25-37)
[2017-05-03 22:12] VITALS: BP 102/60
[2017-05-04 03:19] LABS: PTT 93 SEC (25-37)
[2017-05-04 07:18] VITALS: BP 122/66; BP 158/68
--- NOTE | 2017-05-04 07:48 | PN- Housestaff ---
Subjective Follow-up For: Bilateral pulmonary emboli Tele-Events Since Last Visit: Normal sinus rhythm No overnight events noted Subjective: Dr. Ley wasn't a room when I went to see the patient this morning. Had a detailed discussion regarding anticoagulation and ongoing chemotherapy. Patient currently denies any active complaints. Review of Systems Constitutional: Reports: no symptoms. EENTM: Reports: no symptoms. Cardiovascular: Reports: no symptoms. Respiratory: Reports: no symptoms. Gastrointestinal: Reports: no symptoms. Genitourinary: Reports: no symptoms. Musculoskeletal: Reports: no symptoms. Skin: Reports: no symptoms. Neurological/Psychological: Reports: no symptoms. Hematologic/Endocrine: Reports: no symptoms. Immunologic/Allergic: Reports: no symptoms. Objective Last 24 Hrs of Vital Signs/I&O Vital Signs Date Time Temp Pulse Resp B/P B/P Pulse O2 O2 Flow FiO2 Mean Ox Delivery Rate 05/04 717 98.2 69 18 122/66 97 Room Air 05/03 2212 98.2 66 16 102/60 95 Room Air 05/03 2004 Room Air 05/03 1636 98.2 05/03 1533 99.3 91 20 104/64 96 Room Air 05/03 1432 99.7 88 18 126/71 98 Room Air Room Air Intake & Output 05/04 1600 05/04 0800 05/04 0000 Intake Total 340 275 Output Total Balance 340 275 Intake, IV 120 35 Intake, Oral 220 240 Physical Exam General Appearance: Alert, Oriented X3, Cooperative Skin: No Rashes, No Breakdown Cardiovascular: Regular Rate, Normal S1, Normal S2 Lungs: Clear to Auscultation Abdomen: Normal Bowel Sounds, Soft, No Tenderness Extremities: No Clubbing, No Cyanosis, No Edema, Normal Pulses Current Medications: Current Medications Sig/Danny Start time Last Medication Dose Route Stop Time Status Admin Apixaban 5 MG BID 05/04 1115 DCD 05/04 PO 1228 Atorvastatin Calcium 40 MG 1700 05/03 1700 DCD / PO 2034 Heparin Sodium 25,000 UNIT Q24H / 0330 DCD 05/03 (Porcine) IV 0403 Sodium Chloride 500 ML Levetiracetam 1,000 MG BID 05/03 1000 DCD 03/ PO 1007 Phenobarbital 64.8 MG BID 05/03 1000 DCD 03/ PO 1007 Last 24 Hrs of Lab/Uriel Results Last 24 Hrs of Labs/Mics: Laboratory Tests 05/04/17 1055: APTT 55 H 05/04/17 0645: Anion Gap 8, Estimated GFR > 60, BUN/Creatinine Ratio 20.0, CBC w Diff NO MAN DIFF REQ, RBC 3.81 L, MCV 84.5, MCH 28.5, MCHC 33.7, RDW 18.2 H, MPV 8.0, Gran % 43.1, Lymphocytes % 34.0, Monocytes % 13.6 H, Eosinophils % 8.6 H, Basophils % 0.7, Absolute Granulocytes 0.8 L, Absolute Lymphocytes 0.7 L, Absolute Monocytes 0.3, Absolute Eosinophils 0.2, Absolute Basophils 0 05/04/17 0230: APTT 93 H 05/03/17 1847: APTT 108 *H Assessment/Plan Assessment: Ms. Dillard has a past medical history of colon cancer on chemotherapy, hyperlipidemia, seizure was brought in with a chief concern of fever with a MAXIMUM TEMPERATURE of 101.5. She was recently started on chemotherapy on 5 fluorouracil. Problem list: 1. PE 2. h/o Colon cancer stage III s/p chemo 3. h/o Seizures - IV heparin switched to Eliquis. patient will be discharged home on Eliquis 10 mg twice a day for for a week and then 5 mg twice a day for the rest of the course. - Lower extremity Dopplers negative for any DVT. - 5-FU pump was discontinued because of leukopenia. Flush port was removed after flushed with with normal saline and then heparin. Outpatient follow-up with Dr. Whyte. - Continue rest of home medications. DVT prophylaxis; Eliquis Patient is full Problem List: 1. Pulmonary emboli 2. Colon cancer Pain Ratin Pain Location: None Pain Goal: Remain pain free Pain Plan: None Tomorrow's Labs & Rationales: None
[2017-05-04 08:20] LABS: ABSOLUTE BASOPHIL COUNT 0 /CUMM (0.0-0.2); ABSOLUTE EOSINOPHIL COUNT 0.2 /CUMM (0.0-0.7); ABSOLUTE GRANULOCYTE CT 0.8 /CUMM (1.4-6.5); ABSOLUTE LYMPH COUNT 0.7 /CUMM (1.2-3.4); ABSOLUTE MONOCYTE COUNT 0.3 /CUMM (0.10-0.60); BASOPHIL % 0.7 % (0.0-2.0); EOSINOPHIL % 8.6 % (0-5); GRANULOCYTE % 43.1 % (42.2-75.2); HEMATOCRIT 32.2 % (37-47); MEAN CORPUSCULAR HGB 28.5 PG (27.0-31.0); MEAN CORPUSCULAR HGB CONC 33.7 G/DL (33.0-37.0); MEAN CORPUSCULAR VOLUME 84.5 FL (81.0-99.0); PLATELET COUNT 102 /CUMM (130-400); RBC DISTRIBUTION WIDTH 18.2 % (11.5-14.5); RED BLOOD CELL CT 3.81 /CUMM (4.20-5.40)
--- NOTE | 2017-05-04 10:08 | PN- Oncology ---
Subjective Subjective: Patient offers no new complaints, feels entirely well. Specifically denied shortness of breath cough chest pain or hemoptysis 12 point review of systems is otherwise negative Objective Vital Signs and I&Os Vital Signs Date Time Temp Pulse Resp B/P B/P Pulse O2 O2 Flow FiO2 Mean Ox Delivery Rate 05/04 717 98.2 69 18 122/66 97 Room Air 05/03 2212 98.2 66 16 102/60 95 Room Air 05/04 2003 Room Air 05/03 1636 98.2 05/03 1533 99.3 91 20 104/64 96 Room Air 05/03 1432 99.7 88 18 126/71 98 Room Air Room Air Intake & Output 05/04 0805/04 0000 05/03 1600 05/03 0800 05/03 0000 Intake Total 340 275 Output Total Balance 340 275 Intake, IV 120 35 Intake, Oral 220 240 Patient 155 lb 155 lb Weight Weight Reported by Patient Measurement Method Gen.: in NAD ENT: Sclera anicteric Chest: Normal respiratory effort, clear breath sounds Cor: RRR, no extra sounds Abdomen: Soft, bowel sounds present, no tenderness, no rebound Extremities: Without clubbing, cyanosis, or asymmetric edema Neurology: Alert and oriented 3, no gross deficit Current Medications: Current Medications Sig/Danny Start time Last Medication Dose Route Stop Time Status Admin Atorvastatin Calcium 40 MG 1700 05/03 1700 AC 05/03 PO 2033 Heparin Sodium 25,000 UNIT Q24H / 0330 AC 05/03 (Porcine) IV 0403 Sodium Chloride 500 ML Levetiracetam 1,000 MG BID 05/03 1000 AC 05/03 PO 2033 Phenobarbital 64.8 MG BID 05/03 1000 AC 05/03 PO 2033 Results Last 24 Hours of Lab Results: Laboratory Tests 05/04 05/04 05/03 0645 0230 1847 Chemistry Sodium (137 - 145 mmol/L) 137 Potassium (3.5 - 5.1 mmol/L) 4.1 Chloride (98 - 107 mmol/L) 103 Carbon Dioxide (22 - 30 mmol/L) 25 Anion Gap (5 - 16) 8 BUN (7 - 17 mg/dL) 12 Creatinine (0.5 - 1.0 mg/dL) 0.6 Estimated GFR (>60 ml/min) > 60 BUN/Creatinine Ratio (7 - 25 %) 20.0 Coagulation APTT (25 - 37 SEC) 93 H 108 *H Hematology CBC w Diff NO MAN DIFF REQ WBC (4.8 - 10.8 /CUMM) 2.0 L RBC (4.20 - 5.40 /CUMM) 3.81 L Hgb (12.0 - 16.0 G/DL) 10.8 L Hct (37 - 47 %) 32.2 L MCV (81.0 - 99.0 FL) 84.5 MCH (27.0 - 31.0 PG) 28.5 MCHC (33.0 - 37.0 G/DL) 33.7 RDW (11.5 - 14.5 %) 18.2 H Plt Count (130 - 400 /CUMM) 102 L MPV (7.4 - 10.4 FL) 8.0 Gran % (42.2 - 75.2 %) 43.1 Lymphocytes % (20.5 - 51.1 %) 34.0 Monocytes % (1.7 - 9.3 %) 13.6 H Eosinophils % (0 - 5 %) 8.6 H Basophils % (0.0 - 2.0 %) 0.7 Absolute Granulocytes (1.4 - 6.5 /CUMM) 0.8 L Absolute Lymphocytes (1.2 - 3.4 /CUMM) 0.7 L Absolute Monocytes (0.10 - 0.60 /CUMM) 0.3 Absolute Eosinophils (0.0 - 0.7 /CUMM) 0.2 Absolute Basophils (0.0 - 0.2 /CUMM) 0 03/06 1015 Coagulation APTT (25 - 37 SEC) > 120 *H Cultures-negative Assessment/Plan Assessment/Recommendations: 1. pulmonary emboli-? Acuteness Recommend-to oral anticoagulation- 2. Fever-likely chemotherapy induced 3. Stage III colon cancer 4. Leukopenia-discontinue 5-FU pump. Flush port with normal saline then heparin Follow-up my office I discussed with patient and house staff
[2017-05-04] MEDS ORDERED: ELIQUIS5 M1 PO (10:32)
--- NOTE | 2017-05-04 10:35 | Patient Discharge Instructions ---
Discharge Instructions General Discharge Information You were seen/treated for: Bilateral Pulmonary Emboli Special Instructions: Please follow up with your PCP and Oncologist within a week after discharge. Diet Continue normal diet: Yes Activity Full Activity/No Limits: Yes Acute Coronary Syndrome Inclusion Criteria At DC or during hospital stay patient has or had the following: ACS DIAGNOSIS No Discharge Core Measures Meds if any: Prescribed or Continued at Discharge Meds if any: NOT Prescribed or Continued at Discharge Congestive Heart Failure Inclusion Criteria At DC or during hospital stay patient has or had the following: CHF DIAGNOSIS No Discharge Core Measures Meds if any: Prescribed or Continued at Discharge Meds if any: NOT Prescribed or Continued at Discharge Cerebrovascular accident Inclusion Criteria At DC or during hospital stay patient has or had the following: CVA/TIA Diagnosis No Discharge Core Measures Meds if any: Prescribed or Continued at Discharge Meds if any: NOT Prescribed or Continued at Discharge Venous thromboembolism Inclusion Criteria VTE Diagnosis Yes VTE Type Pulmonary Embolism VTE Confirmed by (Test) CT CHEST ANGIOGRAM Discharge Core Measures - Per Current guidelines, there needs to be overlap - treatment for the first 5 days of Warfarin therapy. - If discharged on Warfarin prior to 5 days of - overlap therapy, the patient will need to be - assessed for post discharge needs including - *Post discharge parental anticoagulation - *Warfarin and/or parental anticoagulation education - *Follow up date to check INR post discharge At least 5 days overlap therapy as Inpatient No Meds if any: Prescribed or Continued at Discharge Note: Overlap Therapy is Warfarin and Anticoagulant Meds if any: NOT Prescribed or Continued at Discharge
[2017-05-04 13:03] LABS: PTT 55 SEC (25-37)
--- NOTE | 2017-05-04 14:11 | PN- Att Addend ---
Attending Addendum Attending Brief Note Patient feeling better today Temp max 99 7 yesterday evening, afebrile today and was already seen by Dr. Alfaro and cleared for discharge and was thought that the fever was most likely related to her chemotherapy treatment she also has some leukopenia from the treatments. And that the pulmonary emboli is probably not recent, but continue the anticoagulation patient to follow with Dr. humphrey and myself did see the CMR. 24 TOTALS 05/04 0000 05/03 0000 Intake Total 275 Output Total Balance 275 Intake, IV 35 Intake, Oral 240 Patient 155 lb Weight Weight Reported by Patient Measurement Method Current Medications Sig/Danny Start time Last Medication Dose Route Stop Time Status Admin Apixaban 5 MG BID 05/04 1115 DCD 05/04 PO 1228 Atorvastatin Calcium 40 MG 1700 05/03 1700 DCD 05/03 PO 2034 Heparin Sodium 25,000 UNIT Q24H 05/03 0330 DCD 05/03 (Porcine) IV 0403 Sodium Chloride 500 ML Levetiracetam 1,000 MG BID 05/03 1000 DCD 05/04 PO 1007 Phenobarbital 64.8 MG BID 05/03 1000 DCD 05/04 PO 1007 Laboratory Tests 05/04/17 1055: APTT 55 H 05/04/17 0645: Anion Gap 8, Estimated GFR > 60, BUN/Creatinine Ratio 20.0, CBC w Diff NO MAN DIFF REQ, RBC 3.81 L, MCV 84.5, MCH 28.5, MCHC 33.7, RDW 18.2 H, MPV 8.0, Gran % 43.1, Lymphocytes % 34.0, Monocytes % 13.6 H, Eosinophils % 8.6 H, Basophils % 0.7, Absolute Granulocytes 0.8 L, Absolute Lymphocytes 0.7 L, Absolute Monocytes 0.3, Absolute Eosinophils 0.2, Absolute Basophils 0 05/04/17 0230: APTT 93 H 05/03/17 1847: APTT 108 *H 05/03/17 1015: APTT > 120 *H 05/03/17 0645: Anion Gap 8, Estimated GFR > 60, BUN/Creatinine Ratio 22.9, CBC w Diff MAN DIFF ORDERED, RBC 4.02 L, MCV 84.1, MCH 28.2, MCHC 33.5, RDW 18.6 H, MPV 7.5, Gran % 84.4 H, Lymphocytes % 6.3 L, Monocytes % 6.2, Eosinophils % 3.0, Basophils % 0.1, Absolute Granulocytes 3.6, Segmented Neutrophils 79 H, Band Neutrophils 0, Absolute Lymphocytes 0.3 L, Lymphocytes 9 L, Monocytes 7, Absolute Monocytes 0.3, Eosinophils 4, Absolute Eosinophils 0.1, Absolute Basophils 0, Platelet Estimate ADEQUATE, Normochromic RBCs VERIFIED, Poikilocytosis 1+, Ovalocytes 1+, Stomatocytes FEW, Fld Total RBCs Counted 100 05/03/17 0256: Urinalysis LIGHT H, Urine Color YEL, Urine Clarity CLEAR, Urine pH 6.5, Ur Specific [place] 1.010, Urine Protein TRACE H, Urine Ketones NEG, Urine Nitrite NEG, Urine Bilirubin NEG, Urine Urobilinogen 0.2, Ur Leukocyte Esterase NEG, Ur Microscopic SEDIMENT EXAMINED, Urine RBC 3-5, Urine WBC 5-10 H, Ur Epithelial Cells MOD H, Hyaline Casts FEW H, Urine Mucus MANY H, Urine Hemoglobin TRACE- INTACT, Urine Glucose NEG 05/03/17 0048: Anion Gap 13, Estimated GFR > 60, BUN/Creatinine Ratio 25.7 H, Glucose 113 H, Calcium 9.4, Total Bilirubin 0.3, Direct Bilirubin 0.2, AST 47 H, ALT 58 H, Alkaline Phosphatase 119, Troponin I 0.02, Total Protein 6.6, Albumin 4.1, Amylase 71, Lipase 131, PT 12.1, INR 1.11, APTT 25, D-Dimer High Sensitivty 7960 H, CBC w Diff MAN DIFF ORDERED, RBC 4.25, MCV 83.8, MCH 28.2, MCHC 33.6, RDW 18.1 H, MPV 7.7, Gran % 88.6 H, Lymphocytes % 3.9 L, Monocytes % 6.6, Eosinophils % 0.8, Basophils % 0.1, Absolute Granulocytes 4.2, Segmented Neutrophils 88 H, Band Neutrophils 1, Absolute Lymphocytes 0.2 L, Lymphocytes 5 L, Monocytes 3, Absolute Monocytes 0.3, Eosinophils 3, Absolute Eosinophils 0 , Absolute Basophils 0, Platelet Estimate ADEQUATE, Normochromic RBCs VERIFIED, Poikilocytosis 1+, Ovalocytes 1+, Stomatocytes FEW, Fld Total RBCs Counted 100 Microbiology 05/03 0054 NASOPHARYN: Influenza Virus A & B Rapid Smear - COMP Vital Signs Date Time Temp Pulse Resp B/P B/P Pulse O2 O2 Flow FiO2 Mean Ox Delivery Rate 05/04 0718 98.2 69 18 122/66 97 Room Air 05/03 2212 98.2 66 16 102/60 95 Room Air 05/03 2004 Room Air 05/03 1636 98.2 05/03 1533 99.3 91 20 104/64 96 Room Air 05/03 1432 99.7 88 18 126/71 98 Room Air Room Air
--- NOTE | 2017-05-04 14:21 | Discharge Summary ---
Visit Information Visit Dates Admission Date: 05/03/17 Discharge Date: 05/04/17 Hospital Course Course Attending Physician: Stewart Chabmers MD Primary Care Physician: Stewart Chambers MD Consulting Request: Consulting Specialty: Hematology/Oncology Consulting Physician: Dr. Whyte Reason for Consult: Fever leukopenia: Cancer of the colon Hospital Course: 57-year-old white female being treated by Dr. Jara for stage III colon cancer. After her last treatment she developed fever and chills and comes to the ER and is evaluated by x-rays also found to have pulmonary emboli. Patient is admitted patient also had fever and chills after her first chemotherapy treatment patient was started on anticoagulation and followed by Dr. Ley the next day patient temperature is down she is feeling better she has some leukopenia had no other changes was thought that the fever was related to the chemotherapy and that the pulmonary emboli probably were present before patient is discharged to follow with Dr. Ley and myself did see the CMR Allergies: Coded Allergies: fexofenadine (Intermediate, PT FEELS NAUSEA, LOSES BALANCE, FEELS OUT OF MIND ) Significant Procedures: SERVICE DATE: 05/03/17- EXAM TYPE: US - US-EXT BILAT VENOUS DOPPLER EXAMINATION: BILATERAL LOWER EXTREMITY DEEP VENOUS ULTRASOUND CLINICAL INFORMATION: 57-year-old female with pulmonary embolus. COMPARISON: No similar prior examinations are available for comparison. TECHNIQUE: Duplex Doppler imaging with compression maneuvers were performed of the bilateral lower extremity deep venous systems. FINDINGS: The bilateral visualized common femoral, femoral and popliteal veins demonstrate normal compressibility and color flow without evidence of venous thrombosis. Visualized portions of the bilateral calf veins demonstrate normal color fill-in suggesting patency. There is no evidence of a Stone's cyst. IMPRESSION: No evidence of deep venous thrombosis involving the bilateral lower extremities. SERVICE DATE: 05/03/17-0158 EXAM TYPE: CAT - CTA CHEST-PULMONARY EMBOLISM EXAMINATION: CT ANGIOGRAM OF THE CHEST WITH AND WITHOUT CONTRAST (CT PULMONARY ANGIOGRAM FOR PE) CLINICAL INFORMATION: Reason for Study:
Presumptive Dx: fever, cancer, +dimer
Signs Symptoms: room 1
COMPARISON: 03/22/2017 TECHNIQUE: Prior to contrast administration, noncontrast localization images were obtained. Subsequently, multidetector volumetric imaging was performed from the thoracic inlet to below the diaphragms following the administration of 65 mL Optiray 350 intravenous contrast. No contrast reaction reported. Sagittal, coronal, and MIP oblique sagittal reformatted images were obtained on the CT workstation, uploaded to PACS, and reviewed. Total exam dose-length product 363.27 mGy-cm. FINDINGS: QUALITY OF STUDY/CONTRAST BOLUS: Satisfactory PULMONARY ARTERIES: There are proximal segmental emboli in the right lower lobe. Tiny segmental emboli are present in the right upper lobe. Segmental to subsegmental emboli are present in the left lower lobe. THORACIC AORTA: No aneurysm or dissection. LUNG: There is subsegmental atelectasis in the lingula and left lower lobe. No regions of consolidation bilaterally. There is a stable 2 mm left upper lobe nodule on image 81/476. There is a stable 3 mm left lower lobe nodule on image 323/476. There is a stable 2 mm right upper lobe nodule on image 127/476 anteriorly. There is a stable 2 mm right upper lobe nodule on image 65/476 medially. There is a stable 2 mm right lower lobe nodule on image 304/476. PLEURA: No pleural effusion or pneumothorax. MEDIASTINUM: The visualized thyroid gland is unremarkable. There are multiple scattered subcentimeter mediastinal lymph nodes with borderline enlargement in the right subcarinal region, mildly increased in prominence from prior. Cardiac size is within normal limits; no pericardial effusion. No evidence of septal bowing or right heart strain. CHEST WALL/AXILLA: No axillary or internal mammary lymphadenopathy. OSSEOUS STRUCTURES: Degenerative endplate changes are noted in the spine. UPPER ABDOMEN: Unremarkable. No reflux of contrast into the hepatic veins to suggest elevated right heart pressures. IMPRESSION: 1. Bilateral segmental to subsegmental pulmonary emboli, in the bilateral lower lobes and right upper lobe. 2. Redemonstration of several tiny bilateral lung nodules. Though these are nonspecific, metastatic disease remains a possibility. 3. Borderline right subcarinal lymphadenopathy, for which attention on follow-up is recommended. VTE: negative Pertinent Lab Results: 05/03/17 1015: APTT > 120 *H 05/03/17 0645: Anion Gap 8, Estimated GFR > 60, BUN/Creatinine Ratio 22.9, CBC w Diff MAN DIFF ORDERED, RBC 4.02 L, MCV 84.1, MCH 28.2, MCHC 33.5, RDW 18.6 H, MPV 7.5, Gran % 84.4 H, Lymphocytes % 6.3 L, Monocytes % 6.2, Eosinophils % 3.0, Basophils % 0.1, Absolute Granulocytes 3.6, Segmented Neutrophils 79 H, Band Neutrophils 0, Absolute Lymphocytes 0.3 L, Lymphocytes 9 L, Monocytes 7, Absolute Monocytes 0.3, Eosinophils 4, Absolute Eosinophils 0.1, Absolute Basophils 0, Platelet Estimate ADEQUATE, Normochromic RBCs VERIFIED, Poikilocytosis 1+, Ovalocytes 1+, Stomatocytes FEW, Fld Total RBCs Counted 100 05/03/17 0256: Urinalysis LIGHT H, Urine Color YEL, Urine Clarity CLEAR, Urine pH 6.5, Ur Specific [place] 1.010, Urine Protein TRACE H, Urine Ketones NEG, Urine Nitrite NEG, Urine Bilirubin NEG, Urine Urobilinogen 0.2, Ur Leukocyte Esterase NEG, Ur Microscopic SEDIMENT EXAMINED, Urine RBC 3-5, Urine WBC 5-10 H, Ur Epithelial Cells MOD H, Hyaline Casts FEW H, Urine Mucus MANY H, Urine Hemoglobin TRACE- INTACT, Urine Glucose NEG 05/03/17 0048: Anion Gap 13, Estimated GFR > 60, BUN/Creatinine Ratio 25.7 H, Glucose 113 H, Calcium 9.4, Total Bilirubin 0.3, Direct Bilirubin 0.2, AST 47 H, ALT 58 H, Alkaline Phosphatase 119, Troponin I 0.02, Total Protein 6.6, Albumin 4.1, Amylase 71, Lipase 131, PT 12.1, INR 1.11, APTT 25, D-Dimer High Sensitivty 7960 H, CBC w Diff MAN DIFF ORDERED, RBC 4.25, MCV 83.8, MCH 28.2, MCHC 33.6, RDW 18.1 H, MPV 7.7, Gran % 88.6 H, Lymphocytes % 3.9 L, Monocytes % 6.6, Eosinophils % 0.8, Basophils % 0.1, Absolute Granulocytes 4.2, Segmented Neutrophils 88 H, Band Neutrophils 1, Absolute Lymphocytes 0.2 L, Lymphocytes 5 L, Monocytes 3, Absolute Monocytes 0.3, Eosinophils 3, Absolute Eosinophils 0 , Absolute Basophils 0, Platelet Estimate ADEQUATE, Normochromic RBCs VERIFIED, Poikilocytosis 1+, Ovalocytes 1+, Stomatocytes FEW, Fld Total RBCs Counted 100 Microbiology 05/03 0755 URINE ROUT: Urine Culture - COLB 05/03 0134 BLOOD: Blood Culture - RECD 05/03 0054 NASOPHARYN: Influenza Virus A & B Rapid Smear - COMP 05/03 0049 BLOOD: Blood Culture - RECD 05/04/17 1055: APTT 55 H 05/04/17 0645: Anion Gap 8, Estimated GFR > 60, BUN/Creatinine Ratio 20.0, CBC w Diff NO MAN DIFF REQ, RBC 3.81 L, MCV 84.5, MCH 28.5, MCHC 33.7, RDW 18.2 H, MPV 8.0, Gran % 43.1, Lymphocytes % 34.0, Monocytes % 13.6 H, Eosinophils % 8.6 H, Basophils % 0.7, Absolute Granulocytes 0.8 L, Absolute Lymphocytes 0.7 L, Absolute Monocytes 0.3, Absolute Eosinophils 0.2, Absolute Basophils 0 05/04/17 0230: APTT 93 H 05/03/17 1847: APTT 108 *H 05/03/17 1015: APTT > 120 *H Disposition Summary Disposition Principal Diagnosis: Fever likely chemotherapy related Leukopenia Pulmonary emboli Additional Diagnosis: Seizures Hyperlipidemia IBS Discharge Disposition: home or self care Discharge Instructions General Discharge Information Code Status: Full Code Patient's Diet: As tolerated Patient's Activity: As tolerated Follow-Up Instructions/Appts: Follow-up with Dr. Ley and Dr. Chambers Medications at Discharge Discharge Medications: Continue taking these medications: Phenobarbital (Phenobarbital) 64.8 MG TABLET 1 Tablet ORAL TWICE DAILY Comments: Last Taken: 05/04/17 Time: 1010 Simvastatin (Zocor*) 40 MG TABLET 1 Tablet ORAL Every night Comments: ATORVASTATIN GIVEN IN HOSPITAL Last Taken: 05/03/17 Time: 2030 Levetiracetam (Levetiracetam) 500 MG TABLET 2 Tablet ORAL TWICE DAILY Qty = 120 Comments: Last Taken: 05/04/17 Time: 1010 Linaclotide (Linzess) 145 MCG CAPSULE 1 Capsule ORAL DAILY Qty = 30 Comments: NOT GIVEN Calcium Citrate/Vitamin D3 (Citracal + D Maximum Caplet) (Unknown Strength) TABLET Unknown Dose ORAL DAILY Comments: NOT GIVEN Acetaminophen (Tylenol) 325 MG TABLET 650 Milligram ORAL Q4-6H as needed for pain not to exceed 4000MG/24HR per day Qty = 30 Comments: not given Ferrous Sulfate (Feosol) 325 MG (65 MG IRON) TABLET 325 Milligram ORAL TWICE DAILY Qty = 60 Comments: not given Start taking the following new medications: Apixaban (Eliquis) 5 MG TABLET 0 ORAL TWICE DAILY Qty = 74 No Refills Instructions: 05/05-05/11 - Take 2 tab twice a day 05/12 Start taking 1 tab twice a day Comments: Last Taken: 05/04/17 Time: 1230 Copies To: Sami Whyte MD; Stewart Chambers MD Attending Review Statement Documenting Attending: Stewart Chambers MD
== END 2017-05-04 13:16 | disposition home health service (06) | DRG 808 ==
LOC: ERH 00:06 → ERHI 04:09 → 1NO 04:09 → CANRESERV 12:08 → ENRESERV 12:08 → ENTRNSPT 14:31 → EDTRNSPTSTS 14:39 → EDTRNSPT 14:39 → 1NO 14:51 → CMPTRNSPT 15:05 → ENPENDDIS 05-04 10:40 → ENTRNSPT 05-04 13:09 → EDTRNSPTSTS 05-04 13:11 → EDTRNSPT 05-04 13:11 → 1NO 05-04 13:16 → CMPTRNSPT 05-04 13:21
PROVIDERS: Internal Medicine; Internal Medicine Endocrinology, Diabetes & Metabolism; Pediatrics
DX: D70.1 Agranulocytosis secondary to cancer chemotherapy (principal); I26.99 Other pulmonary embolism without acute cor pulmonale; R56.9 Unspecified convulsions; C18.9 Malignant neoplasm of colon, unspecified; E78.5 Hyperlipidemia, unspecified; K58.9 Irritable bowel syndrome, unspecified; R50.81 Fever presenting with conditions classified elsewhere
CPT/HCPCS: 1NP; 36592; 81001; 82436; 87040; 87086; 87804; 87804-59; 93005; 93010; 93970; 96374; 96376; 99291; J1642; J1644